=== PATIENT | female | born 1970 | race Caucasian/White ===

== ENCOUNTER 2019-09-13 06:29 | Emergency (ER) | payer OTHER ==
[~2019-09-13] VITALS: Ht 149.9 cm; Wt 59.0 kg
[2019-09-13] MEDS ORDERED: BANOPHEN25 M1 PO (06:36)
[2019-09-13] MEDS ORDERED: ROPINIROLE HCL1 MG PO (06:37)
[2019-09-13] MEDS ORDERED: TOPAMAX50 MG PO (06:37)
[2019-09-13] MEDS ORDERED: MIDODRINE HCL5 MG PO (06:37)
[2019-09-13] MEDS ORDERED: IMITREX100 MG PO (06:43)
--- NOTE | 2019-09-13 07:53 | EKG ---
[facility] [address] [facility] [place], [place] [address] Signed Normal sinus rhythm Normal ECG No previous ECGs available Confirmed by BRANDON ALEXANDER MD ([id number]) on 09/13/2019 7:53:12 AM Electronically Signed By: BRANDON ALEXANDER MD 09/13/19 0753 PATIENT NAME: ALEXUS DAVID Patel Electrocardiogram DATE OF : 70 PHYSICIAN: BRANDON ALEXANDER MD REPORT #: [id number] REPORT IS CONFIDENTIAL AND NOT TO BE RELEASED WITHOUT AUTHORIZATION
== END 2019-09-13 07:35 | disposition home or self-care (01) ==
LOC: ED 06:29
DX: R07.2 Precordial pain (principal); F17.200 Nicotine dependence, unspecified, uncomplicated; J45.909 Unspecified asthma, uncomplicated; Z79.899 Other long term (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
CPT/HCPCS: 71045; 80053; 83735; 84484; 85025; 93005; 93010; 96374; 99285-25; J1885

== ENCOUNTER 2019-10-31 10:58 | Emergency (ER) | payer OTHER ==
[~2019-10-31] VITALS: Ht 149.9 cm; Wt 59.0 kg
--- OUTSIDE RECORDS SUMMARY | ~2019-10-31 | XMS | Encounter Summary ---
Demographics + + + | Address | [address] | | | [place] [address] | + + + | Home Phone | | + + + | Preferred Language | Unknown | + + + | Marital Status | Single | + + + | Mu-Ism Affiliation | 1013 | + + + | Race | Unknown | + + + | Ethnic Group | Unknown | + + + Author + + + | Author | [facility] | | | and [place] | + + + | Organization | [facility] | | | and [...] Team Providers + +------+ + | Care Cna Per Diem Name | Role | Phone | + +------+ + PCP | Unavailable | + +------+ + Encounter Details +--------+ + + + + | Date | Type | Department | Care Team | Description | +--------+ + + + + | 12/01/ | [facility] | [facility] | Elías Mast | | | 2001 | Encounter | MED CTR LABORATORY | MD Jose [address] | | | | | [address] | [place] | | | | | [place] | [place] [address] | | | | | [address] | [phone] | | | | | [phone] | | | +--------+ + + + [...] on file | | + + + + + + + | Job Start Date | Occupation | Industry | + + + + | Not on file | Not on file | Not on file | + + + + + + + + | Travel History | Travel Start | Travel End | + + + + + + | No recent travel history available. | + + documented as of this encounter Plan of Treatment Not on filedocumented as of this encounter Visit Diagnoses Not on filedocumented in this encounter"
--- OUTSIDE RECORDS SUMMARY | ~2019-10-31 | XMS | Encounter Summary ---
Demographics + + + | Address | [address] | | | [place] [address] | + + + | Home Phone | | + + + | Preferred Language | Unknown | + + + | Marital Status | Single | + + + | Jain Affiliation | 1013 | + + + | Race | Unknown | + + + | Ethnic Group | Unknown | + + + Author + + + | Author | [facility] | | | and [place] | + + + | Organization | [facility] | | | [...] Team Providers + +------+ + | Care Plastic Shaper Name | Role | Phone | + +------+ + PCP | Unavailable | + +------+ + Encounter Details +--------+ + + + + | Date | Type | Department | Care Team | Description | +--------+ + + + + | 12/01/ | [facility] | [facility] | Elías Mast | | | 2001 | Encounter | MED CTR LABORATORY | MD Jose [address] | | | | | [address] [place] | [place] | | | | | [place] | [place] [address] | | | | | [address] | [phone] | | | | | [phone] | | | +--------+ + + + [...]
--- OUTSIDE RECORDS SUMMARY | ~2019-10-31 | XMS | Clinical Summary ---
Demographics + + + | Address | [address] | | | [place] [address] | + + + | Home Phone | | + + + | Preferred Language | Unknown | + + + | Marital Status | Single | + + + | Samaritan Affiliation | 1013 | + + + | Race | Unknown | + + + | Ethnic Group | Unknown | + + + Author + + + | Author | [facility] | | | and [place] | + + + | Organization | [facility] | | | [...] Team Providers + +------+ + | Care Pet Care Worker Name | Role | Phone | + +------+ + PCP | Unavailable | + +------+ + Allergies Not on File Medications Not on file Active Problems Not on file Social History + +-------+ +--------+------+ | Tobacco [...] recent travel history available. | + + Last Filed Vital Signs Not on file Plan of Treatment + + + + + | Health Maintenance | Due Date | Last Done | Comments | + + + + + | Vaccine: | | | | | Dtap/Tdap/Td (1 - | 1 | | | | Tdap) | | | | + + + + + | Cervical Cancer | | | | | Screening (Pap) | 0 | | | + + + + + | Breast Cancer | | | | | Screening | 5 | | | + + + + + | Vaccine: Influenza | | | | | (Season Ended) | 0 | | | + + + + + Results Not on filefrom Last 3 Months"
--- OUTSIDE RECORDS SUMMARY | ~2019-10-31 | XMS | Encounter Summary ---
Demographics + + + | Address | [address] | | | [place] [address] | + + + | Home Phone | | + + + | Preferred Language | Unknown | + + + | Marital Status | Single | + + + | Caodaism Affiliation | 1013 | + + + [...] Team Providers + +------+ + | Care Conservation Enforcement Officer Name | Role | Phone | + +------+ + PCP | Unavailable | + +------+ + Encounter Details +--------+ + + + + | Date | Type | Department | Care Team | Description | +--------+ + + + + | 11/26/ | Hospital | [facility] | Naeemage, | Unspecified chest | | 2010 | Encounter | CONVERSION DEP [address] | Kareem Ervin, | pain | | | | [place] | MD Janelle Moeller | | | | | [place] | [address], | | | | | [address] | [place] [address] | | | | | [phone] | [phone] | | | | | | | | +--------+ + + + [...] Not on filedocumented as of this encounter Procedures + +--------+ + + + | Procedure Name | Priori | Date/Time | Associated Diagnosis | Comments | | | ty | | | | + +--------+ + + + | CV CARDIAC PROCEDURE | Routin | 11/26/2010 | | Results for this | | | e | 12:55 PM | | procedure are in the | | | | PDT | | results section. | + +--------+ + + + documented in this encounter Results CV CARDIAC PROCEDURE (11/26/2010 12:55 PM PDT) + + | Specimen | + + | | + + + + + | Narrative | Performed At | + + + | PROCEDURE Left heart catheterization and coronary angiography. | | | RESULTS Aortic pressure is 130/37, with a mean of 45. Left | | | ventricular pressure is 132/2, with an EDP of 23. ARTERIOGRAPHY | | | 1. The left main coronary artery is normal. 2. The left anterior | | | descending is normal. 3. The left circumflex is normal, huge, and | | | dominant. 4. The right coronary artery is a diminutive, but long | | | artery that is angiographically unremarkable. LEFT | | | VENTRICULOGRAM Shows normal left ventricular systolic function | | | without regional wall motion abnormalities. Aortic and mitral valves | | | are structurally unremarkable. ESTIMATED BLOOD LOSS Less than 50 | | | mL. IMPRESSION Normal cardiac catheterization. DD: | | | 11/26/2010 12:44 P P [facility]/[id number]/ | | | Read by KAREEM RIVERO MD 11/26/2010 12:44 P | | | | | + + + + + | Procedure Note | + + | Arturo, Rad Conversion - 01/15/2019 5:55 PM PDT PROCEDURE | | Left heart catheterization and coronary angiography. | | | | RESULTS | | Aortic pressure is 130/37, with a mean of 45. | | Left ventricular pressure is 132/2, with an EDP of 23. | | | | ARTERIOGRAPHY | | 1. The left main coronary artery is normal. | | 2. The left anterior descending is normal. | | 3. The left circumflex is normal, huge, and dominant. | | 4. The right coronary artery is a diminutive, but long artery that is | | angiographically unremarkable. | | | | LEFT VENTRICULOGRAM | | Shows normal left ventricular systolic function without regional wall | | motion abnormalities. Aortic and mitral valves are structurally | | unremarkable. | | | | ESTIMATED BLOOD LOSS | | Less than 50 mL. | | | | IMPRESSION | | Normal cardiac catheterization. | | | | | | | | P | | P | | R/[id number]/ | | | | Read by | | KAREEM RIVERO MD 11/26/2010 12:44 P | | | | | + + documented in this encounter Visit Diagnoses + + | Diagnosis | + + | Chest pain, unspecified | + + documented in this encounter"
--- OUTSIDE RECORDS SUMMARY | ~2019-10-31 | XMS | Encounter Summary ---
Demographics + + + | Address | [address] | | | [place] [address] | + + + | Home Phone | | + + + | Preferred Language | Unknown | + + + | Marital Status | Single | + + + | Yarsani Affiliation | 1013 | + + + | Race | Unknown | + + + | Ethnic Group | Unknown | + + + Author + + + | Author | [facility] | | | and [place] | + + + | Organization | [facility] | | [...] Team Providers + +------+ + | Care Disposal Worker Name | Role | Phone | + +------+ + PCP | Unavailable | + +------+ + Encounter Details +--------+ + + + + | Date | Type | Department | Care Team | Description | +--------+ + + + + | 11/26/ | Hospital | [facility] | Naeemage, | Unspecified chest | | 2010 | Encounter | CONVERSION DEP [address] | Kareem Ervin, | pain | | | | [place] | MD Janelle Moeller | | | | | [place] | [address], | | | | | [address] | [place] [address] | | | | | [phone] | [phone] | | | | | | | [...] | | | 11/26/2010 12:44 P P [facility]/[id number]/ | | | Read by KAREEM RIVERO [...] | P | | P | | [id number]/ | | | | Read by | | KAREEM RIVERO MD 11/26/2010 12:44 P | | | | | + + documented in this encounter Visit Diagnoses + + | Diagnosis | + + | Chest pain, unspecified | + + documented in this encounter"
--- OUTSIDE RECORDS SUMMARY | ~2019-10-31 | XMS | Clinical Summary ---
Demographics + + + | Address | [address] | | | [place] [address] | + + + | Home Phone | | + + + | Preferred Language | Unknown | + + + | Marital Status | Single | + + + | Lutheran Affiliation | 1013 | + + + | Race | Unknown | + + + | Ethnic Group | Unknown | + + + Author + + + | Author | [facility] | | | and [place] | + + + | Organization | [facility] | | | and [...] Team Providers + +------+ + | Care Compliance Review Officer Name | Role | Phone | [...]
--- OUTSIDE RECORDS SUMMARY | ~2019-10-31 | XMS | Encounter Summary ---
Demographics + + + | Address | [address] | | | [place] [address] | + + + | Home Phone | | + + + | Preferred Language | Unknown | + + + | Marital Status | Single | + + + | Anglican Affiliation | 1013 | + + + | Race | Unknown | + + + | Ethnic Group | Unknown | + + + Author + + + | Author | [facility] | | | and [place] | + + + | Organization | [facility] | | | [...] Team Providers + +------+ + | Care Car Coupler Name | Role | Phone | + +------+ + PCP | Unavailable | + +------+ + Encounter Details +--------+ + + + + | Date | Type | Department | Care Team | Description | +--------+ + + + + | 11/10/ | [facility] | [facility] | Elías Mast | | | 2001 | Encounter | MED CTR SLEEP | MD Jose [address] | | | | | CENTER [address] | [place] | | | | | [place] | [place] [address] | | | | | [address] | [phone] | | | | | [phone] | | | +--------+ + + + [...]
--- OUTSIDE RECORDS SUMMARY | ~2019-10-31 | XMS | Encounter Summary ---
Demographics + + + | Address | [address] | | | [place] [address] | + + + | Home Phone | | + + + | Preferred Language | Unknown | + + + | Marital Status | Single | + + + | Rastafari Affiliation | 1013 | + + + | Race | Unknown | + + + | Ethnic Group | Unknown | + + + Author + + + | Author | [facility] | | | and [place] | + + + | Organization | [facility] | | [...] Team Providers + +------+ + | Care Script Girl Name | Role | Phone | + [...] | | CENTER [address] | [facility] [place], | | | | | [address] [place], [place] | [place] [address] | | | | | [address] | [phone] | | | | | [phone] | | | +--------+ + + + [...]
--- OUTSIDE RECORDS SUMMARY | ~2019-10-31 | XMS | Encounter Summary ---
Demographics + + + | Address | [address] | | | [place] [address] | + + + | Home Phone | | + + + | Preferred Language | Unknown | + + + | Marital Status | Single | + + + | Tenriism Affiliation | 1013 | + + + | Race | Unknown | + + + | Ethnic Group | Unknown | + + + Author + + + | Author | [facility] | | | and [place] | + + + | Organization | [facility] | | [...] Providers + +------+ + | Care Medical Records Technician Name | Role | Phone | + +------+ + PCP | Unavailable | + +------+ + Encounter Details +--------+ + + + + | Date | Type | Department | Care Team | Description | +--------+ + + + + | 02/08/ | [facility] | [facility] | Elías Mast | | | 2001 | Encounter | MED CTR LABORATORY | MD Jose [address] | | | | | [address] | [place] | | | | | [place] | [place] [address] | | | | | [address] | [phone] | | | | | [phone] | | | +--------+ + + + [...]
--- OUTSIDE RECORDS SUMMARY | ~2019-10-31 | XMS | Encounter Summary ---
Demographics + + + | Address | [address] | | | [place] [address] | + + + | Home Phone | | + + + | Preferred Language | Unknown | + + + | Marital Status | Single | + + + | Druze Affiliation | 1013 | + + + | Race | Unknown | + + + | Ethnic Group | Unknown | + + + Author + + + | Author | [facility] | | | and [place] | + + + | Organization | [facility] | | | [...] Team Providers + +------+ + | Care Cloth Brushing And Sueding Supervisor Name | Role | Phone | [...] | | CENTER [address] | [facility] [place], | | | | | [address] [place], [place] | [place] [address] | | | | | [address] | [phone] | | | | | [phone] | | | +--------+ + + + [...]
--- OUTSIDE RECORDS SUMMARY | ~2019-10-31 | XMS | Encounter Summary ---
Demographics + + + | Address | [address] | | | [place] [address] | + + + | Home Phone | | + + + | Preferred Language | Unknown | + + + | Marital Status | Single | + + + | Anabaptist Affiliation | 1013 | + + + [...] Providers + +------+ + | Care Medical Program Specialist Name | Role | Phone | + +------+ + PCP | Unavailable | + +------+ + Encounter Details +--------+ + + + + | Date | Type | Department | Care Team | Description | +--------+ + + + + | 02/08/ | [facility] | [facility] | Elías Mast | | | 2001 | Encounter | MED CTR LABORATORY | MD Jose [address] | | | | | [address] | [place] | | | | | [place] | [place] [address] | | | | | [address] | [phone] | | | | | [phone] | | | +--------+ + + + [...]
--- OUTSIDE RECORDS SUMMARY | ~2019-10-31 | XMS | Encounter Summary ---
Demographics + + + | Address | [address] | | | [place] [address] | + + + | Home Phone | | + + + | Preferred Language | Unknown | + + + | Marital Status | Single | + + + | Latter-Day Affiliation | 1013 | + + + | Race | Unknown | + + + | Ethnic Group | Unknown | + + + Author + + + | Author | [facility] | | | and [place] | + + + | Organization | [facility] | | | [...] Team Providers + +------+ + | Care Public Health Engineer Name | Role | Phone | + +------+ + PCP | Unavailable | + +------+ + Encounter Details +--------+ + + + + | Date | Type | Department | Care Team | Description | +--------+ + + + + | 11/10/ | [facility] | [facility] | Elías Mast | | | 2001 | Encounter | MED CTR SLEEP | MD Jose [address] | | | | | CENTER [address] | [place] | | | | | [place] | [place] [address] | | | | | [address] | [phone] | | | | | [phone] | | | +--------+ + + + [...]
--- OUTSIDE RECORDS SUMMARY | ~2019-10-31 | XMS | Encounter Summary ---
Demographics + + + | Address | [address] | | | [place] [address] | + + + | Home Phone | | + + + | Preferred Language | Unknown | + + + | Marital Status | Single | + + + | Episcopalian Affiliation | 1013 | + + + | Race | Unknown | + + + | Ethnic Group | Unknown | + + + Author + + + | Author | [facility] | | | and [place] | + + + | Organization | [facility] | | [...] Providers + +------+ + | Care Senior Energy Trader Name | Role | Phone | + +------+ + PCP | Unavailable | + +------+ + Encounter Details +--------+ + + + + | Date | Type | Department | Care Team | Description | +--------+ + + + + | 10/11/ | Hospital | [facility] | Jorge [facility]ros | | | 2008 | Encounter | HOSPITAL EMERGENCY | MD Dani [address] | | | | | CENTER [address] | [address] [place] | | | | | [address] [place] | [place] [address] | | | | | [address] | [phone] | | | | | [phone] | | | +--------+ + + + [...]
--- OUTSIDE RECORDS SUMMARY | ~2019-10-31 | XMS | Encounter Summary ---
Demographics + + + | Address | [address] | | | [place] [address] | + + + | Home Phone | | + + + | Preferred Language | Unknown | + + + | Marital Status | Single | + + + | Religion Affiliation | 1013 | + + + | Race | Unknown | + + + | Ethnic Group | Unknown | + + + Author + + + | Author | [facility] | | | and [place] | + + + | Organization | [facility] | | | [...] Team Providers + +------+ + | Care Operations Support Representative Name | Role | Phone | + [...] | [address] [place] [place] | [place] [address] | | | | | [address] | [phone] | | | | | [phone] | | | +--------+ + + + [...]
[~2019-10-31 10:58] MED LIST: BANOPHEN25 M1 PO; IMITREX100 MG PO; MIDODRINE HCL5 MG PO; ROPINIROLE HCL1 MG PO; TOPAMAX50 MG PO
[2019-10-31] MEDS ORDERED: PRAMIPEXOLE DIHY1 MG PO (11:29)
== END 2019-10-31 13:16 | disposition home or self-care (01) ==
LOC: ED 10:58
DX: S70.02XA Contusion of left hip, initial encounter (principal); J45.909 Unspecified asthma, uncomplicated; F17.200 Nicotine dependence, unspecified, uncomplicated; Z79.899 Other long term (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; W18.30XA Fall on same level, unspecified, initial encounter
CPT/HCPCS: 73502; 96372; 99283-25; J1885

== ENCOUNTER 2019-11-07 14:48 | Emergency (ER) | payer OTHER ==
[~2019-11-07] VITALS: Ht 149.9 cm; Wt 59.0 kg
[~2019-11-07 14:48] MED LIST changes: +PRAMIPEXOLE DIHY1 MG PO
--- OUTSIDE RECORDS SUMMARY | 2019-11-07 14:54 | XMS ---
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 Thee has no Care Guidelines for this patient. [place] [facility] (12 MO.) [facility] NOTE: Visits indicate total known visits. ED/C VISIT TRACKING (12 MO.) 11/07/2019 14:48 [facility] TYPE: Emergency COMPLAINT: - FALL 10/31/2019 10:59 [place] TYPE: Emergency COMPLAINT: - FALL, NECK PAIN,LEFT HIP PAIN DIAGNOSES: - Other retirement (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 - Contusion of left hip, initial encounter - Nicotine dependence, unspecified, uncomplicated - Fall on same level, unspecified, initial encounter - Pain in left hip - Unspecified asthma, uncomplicated 09/13/2019 06:30 [place] TYPE: Emergency COMPLAINT: - CHEST PAIN DIAGNOSES: - Precordial pain - Unspecified asthma, uncomplicated - Other retirement (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 - Nicotine dependence, unspecified, uncomplicated - Precordial pain INPATIENT VISIT TRACKING (12 MO.) No inpatient visits to display in this time frame [email or web address]
[2019-11-07] MEDS ORDERED: MIDODRINE HCL5 MG PO (18:13)
[2019-11-07] MEDS ORDERED: MIRAPEX1 MG PO (18:13)
== END 2019-11-07 18:25 | disposition home or self-care (01) ==
LOC: ED 14:48
DX: S13.9XXA Sprain of joints and ligaments of unspecified parts of neck, initial encounter (principal); S93.401A Sprain of unspecified ligament of right ankle, initial encounter; S43.401A Unspecified sprain of right shoulder joint, initial encounter; I95.9 Hypotension, unspecified; J45.909 Unspecified asthma, uncomplicated; F17.200 Nicotine dependence, unspecified, uncomplicated; X58.XXXA Exposure to other specified factors, initial encounter
CPT/HCPCS: 72050; 73030; 73560; 73610; 99284-25; A9270

== ENCOUNTER 2019-11-20 10:56 | Emergency (ER) | payer OTHER ==
[~2019-11-20] VITALS: Ht 149.9 cm; Wt 59.0 kg
--- OUTSIDE RECORDS SUMMARY | ~2019-11-20 | XMS | Encounter Summary ---
Demographics + + + | Address | [address] | | | [place] [address] | + + + | Home Phone | | + + + | Preferred Language | Unknown | + + + | Marital Status | | + + + | Methodist Affiliation | 1013 | + + + | Race | Unknown | + + + | Ethnic Group | Unknown | + + + Author + + + | Author | [facility] | | | and [place] | + + + | Organization | [facility] | | | and [...] Team Providers + +------+ + | Care Gas Line Installer Name | Role | Phone | + +------+ + PCP | Unavailable | + +------+ + Encounter Details +--------+ + + + + | Date | Type | Department | Care Team | Description | +--------+ + + + + | 02/08/ | [facility] | [facility] | Elías Mast | | | 2001 | Encounter | MED CTR LABORATORY | MD Jose [address] | | | | | [address] | [address] [place] | | | | | [place] | [place] [address] | | | | | [address] | [phone] | | | | | [phone] | | | +--------+ + + + [...] [place] | | | | | | [place] [address] | | | | | | [phone] | | | | | | | | +--------+---------+ + + + documented as of this encounter Visit Diagnoses Not on filedocumented in this encounter"
--- OUTSIDE RECORDS SUMMARY | ~2019-11-20 | XMS | Encounter Summary ---
Demographics + + + | Address | [address] | | | [place] [address] | + + + | Home Phone | | + + + | Preferred Language | Unknown | + + + | Marital Status | | + + + | Latter-Day Affiliation | 1013 | + + + | Race | Unknown | + + + | Ethnic Group | Unknown | + + + Author + + + | Author | [facility] | | | and [place] | + + + | Organization | [facility] | | | [...] Team Providers + +------+ + | Care Senior Underwriter Name | Role | Phone | + +------+ + PCP | Unavailable | + +------+ + Encounter Details +--------+ + + + + | Date | Type | Department | Care Team | Description | +--------+ + + + + | 11/10/ | [facility] | [facility] | Elías Mast | | | 2001 | Encounter | MED CTR SLEEP | MD Jose [address] | | | | | CENTER [address] | [address] [place] | | | | | [place] | [place] [address] | | | | | [address] | [phone] | | | | | [phone] | | | +--------+ + + + [...] [address] | | | | | | [place] [address] | | | | | | [phone] | | | | | | | | +--------+---------+ + + + documented as of this encounter Visit Diagnoses Not on filedocumented in this encounter"
--- OUTSIDE RECORDS SUMMARY | ~2019-11-20 | XMS | Clinical Summary ---
Demographics + + + | Address | [address] | | | [place] [address] | + + + | Home Phone | | + + + | Preferred Language | Unknown | + + + | Marital Status | | + + + | Latter-Day Affiliation | 1013 | + + + | Race | Unknown | + + + | Ethnic Group | Unknown | + + + Author + + + | Author | [facility] | | | and [place] | + + + | Organization | [facility] | | | [...] Team Providers + +------+ + | Care Health And Wellness Coach Name | Role | Phone | + +------+ + | Kalyani Lawrence PA-C | PCP | | + +------+ + Allergies Not on [...] + + + Last Filed Vital Signs Not on file Plan of Treatment +--------+---------+ + + + | Date | Type | Specialty | Care Team | Description | +--------+---------+ + + + | 12/25/ | Office | Cardiology | Naveen, | | | 2019 | Visit | | MD [address] | | | | | | [address] | | | | | | [place] [address] | | | | | | [phone] | | | | | | | | +--------+---------+ + + + + + +-------+ + | Health Maintenance | Due Date | Last | Comments | | | | Done | | + + +-------+ + | Vaccine: | | | | | Dtap/Tdap/Td (1 - | 9 | | | | Tdap) | | | | + + +-------+ + | Cervical Cancer | | | | | Screening (Pap) | 0 | | | + + +-------+ + | Breast Cancer | | | | | Screening | 5 | | | + + +-------+ + | Vaccine: Influenza | | | | | (Season Ended) | 0 | | | + + +-------+ + Results Not on filefrom Last 3 Months Insurance + +--------+ +--------+ [...] | [employer] | MODA | [id number] | | [phone] | | Medica | | MEDICAID HMO [...] Anna Sandoval | Person | Self | [birth year] | [address] | | | al/Fam | | 1970 | [phone] | [place] | | | cara | | | 5 ([place]) | [address] | + +--------+ +--------+ + + Advance Directives + + + + + | Type | Date Recorded | Patient | Explanation | | | | Grid Maker | | + + + + + | Power of | | | | | Automobile Leasing Supervisor | | | | + + + + + | Advance | | | | | Directive | | | | + + + + +"
--- OUTSIDE RECORDS SUMMARY | ~2019-11-20 | XMS | Encounter Summary ---
Demographics + + + | Address | [address] | | | [place] [address] | + + + | Home Phone | | + + + | Preferred Language | Unknown | + + + | Marital Status | | + + + | Yarsanism Affiliation | 1013 | + + + | Race | Unknown | + + + | Ethnic Group | Unknown | + + + Author + + + | Author | [facility] | | | and [place] | + + + | Organization | [facility] | | | [...] Team Providers + +------+ + | Care Accounts Payable Supervisor Name | Role | Phone | + +------+ + PCP | Unavailable | + +------+ + Encounter Details +--------+ + + + + | Date | Type | Department | Care Team | Description | +--------+ + + + + | 11/26/ | Hospital | [facility] | Ravage, | Unspecified chest | | 2010 | Encounter | CONVERSION [address] | Kareem Ervin, | pain | | | | [place] | MD Janelle Moeller | | | | | [place] | [address] [place], | | | | | [address] | [place] [address] | | | | | [phone] | [phone] | | | | | | | [...] [place]JAS | | | | | | [facility] [address] | | | | | | [phone] | | | | | | | [...] | | | 11/26/2010 12:44 P P [id number]/ | | | Read by KAREEM RIVERO [...] | P | | P | | [id number]/ | | | | Read by | | KAREEM RIVERO MD 11/26/2010 12:44 P | | | | | + + documented in this encounter Visit Diagnoses + + | Diagnosis | + + | Chest pain, unspecified | + + documented in this encounter"
--- OUTSIDE RECORDS SUMMARY | ~2019-11-20 | XMS | Encounter Summary ---
Demographics + + + | Address | [address] | | | [place] [address] | + + + | Home Phone | | + + + | Preferred Language | Unknown | + + + | Marital Status | | + + + | Mu-Ism Affiliation [...] Team Providers + +------+ + | Care Radiologic Technology Instructor Name | Role | Phone | + +------+ + PCP | Unavailable | + +------+ + Encounter Details +--------+ + + + + | Date | Type | Department | Care Team | Description | +--------+ + + + + | 12/01/ | [facility] | [place] | Elías Mast | | | 2001 | Encounter | MED CTR LABORATORY | MD Jose [address] | | | | | [address] | [address] | | | | | [place] | [place] [address] | | | | | [address] | [phone] | | | | | [phone] | | | +--------+ + + + [...] [place] | | | | | | [place] [address] | | | | | | [phone] | | | | | | | | +--------+---------+ + + + documented as of this encounter Visit Diagnoses Not on filedocumented in this encounter"
--- OUTSIDE RECORDS SUMMARY | ~2019-11-20 | XMS | Encounter Summary ---
Demographics + + + | Address | [address] | | | [place] [address] | + + + | Home Phone | | + + + | Preferred Language | Unknown | + + + | Marital Status | | + + + | Anglican Affiliation | 1013 | + + + | Race | Unknown | + + + | Ethnic Group | Unknown | + + + Author + + + | Author | [facility] | | | and [place] | + + + | Organization | [facility] | | | [...] Team Providers + +------+ + | Care Pumping Station Engineer Name | Role | Phone | [...] | [address] [place] | [place] [address] | | | | | [address] | [phone] | | | | | [phone] | | | +--------+ + + + [...] | | | | | [place] [address] | | | | | | [phone] | | | | | | | | +--------+---------+ + + + documented as of this encounter Visit Diagnoses Not on filedocumented in this encounter"
--- OUTSIDE RECORDS SUMMARY | ~2019-11-20 | XMS | Encounter Summary ---
Demographics + + + | Address | [address] | | | [place] [address] | + + + | Home Phone | | + + + | Preferred Language | Unknown | + + + | Marital Status | | + + + | Sabianist Affiliation | 1013 | + + + [...] Team Providers + +------+ + | Care Adult Literacy Instructor Name | Role | Phone | [...] | | [address] [place], [place] | [place] [address] | | | | | [address] | [phone] | | | | | [phone] | | | +--------+ + + + [...] [place] | | | | | | [place] [address] | | | | | | [phone] | | | | | | | | +--------+---------+ + + + documented as of this encounter Visit Diagnoses Not on filedocumented in this encounter"
[~2019-11-20 10:56] MED LIST changes: +MIRAPEX1 MG PO
--- OUTSIDE RECORDS SUMMARY | 2019-11-20 10:58 | XMS ---
PreManage Notification: ALEXUS DAVID Security Weaver [place] Events No recent Security Events currently on file CRITERIA MET - [facility] - 2 Visits in 30 Days CARE PROVIDERS There are no care providers on record at this time. Thee has no Care Guidelines for this patient. Hannah VISIT COUNT (12 MO.) [address] [facility] [place] TOTAL 4 NOTE: Visits indicate total known visits. ED/C VISIT TRACKING (12 MO.) 11/20/2019 10:56 [place] TYPE: Emergency COMPLAINT: - LEFT HAND PAIN 11/07/2019 14:48 [place] TYPE: Emergency COMPLAINT: - FALL DIAGNOSES: - Hypotension, unspecified - Sprain of joints and ligaments of unspecified parts of neck, - Nicotine dependence, unspecified, uncomplicated - Unspecified asthma, uncomplicated - Cervicalgia - Exposure to other specified factors, initial encounter - Sprain of unspecified ligament of right ankle, initial encoun - Unspecified sprain of right shoulder joint, initial encounter 10/31/2019 10:59 [place] TYPE: Emergency COMPLAINT: - FALL, NECK PAIN,LEFT HIP PAIN DIAGNOSES: - Other care home (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 - Contusion of left hip, initial encounter - Nicotine dependence, unspecified, uncomplicated - Fall on same level, unspecified, initial encounter - Pain in left hip - Unspecified asthma, uncomplicated 09/13/2019 06:30 [place] TYPE: Emergency COMPLAINT: - CHEST PAIN DIAGNOSES: - Precordial pain - Unspecified asthma, uncomplicated - Other termination clerk (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 - Nicotine dependence, unspecified, uncomplicated - Precordial pain INPATIENT VISIT TRACKING (12 MO.) No inpatient visits to display in this time frame [email or web address]
[2019-11-20] MEDS ORDERED: MIDODRINE HCL5 MG PO (13:29)
--- NOTE | 2019-11-23 16:12 | EKG ---
[facility] [address] [facility] [place], [place] [address] Signed Normal sinus rhythm Normal ECG When compared with ECG of 13-SEP-2019 06:34, No significant change was found Confirmed by MARY FAITH DO ([id number]) on 11/23/2019 4:12:31 PM Electronically Signed By: MARY FAITH DO 11/23/19 1612 PATIENT NAME: ALEXUS DAVID Patel Electrocardiogram DATE OF : 70 PHYSICIAN: MARY FAITH DO REPORT #: [id number] REPORT IS CONFIDENTIAL AND NOT TO BE RELEASED WITHOUT AUTHORIZATION
== END 2019-11-20 14:02 | disposition home or self-care (01) ==
LOC: ED 10:56
DX: S60.222A Contusion of left hand, initial encounter (principal); R55 Syncope and collapse; R00.1 Bradycardia, unspecified; F17.200 Nicotine dependence, unspecified, uncomplicated; Z79.899 Other long term (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; W19.XXXA Unspecified fall, initial encounter
CPT/HCPCS: 36415; 73130; 80053; 83735; 84484; 85025; 93005; 93010; 99284-25

== ENCOUNTER 2019-11-22 22:48 | Emergency (ER) | payer OTHER ==
[~2019-11-22] VITALS: Ht 149.9 cm; Wt 59.0 kg
--- OUTSIDE RECORDS SUMMARY | ~2019-11-22 | XMS | Encounter Summary ---
Demographics + + + | Address | [address] | | | [place] [address] | + + + | Home Phone | | + + + | Preferred Language | Unknown | + + + | Marital Status | | + + + | Congregational Affiliation | 1013 | + + + | Race | Unknown | + + + | Ethnic Group | Unknown | + + + Author + + + | Author | [facility] | | | and [place] | + + + | Organization | [facility] | | | [...] Team Providers + +------+ + | Care Threader Operator Name | Role | Phone | + +------+ + PCP | Unavailable | + +------+ + Encounter Details +--------+ + + + + | Date | Type | Department | Care Team | Description | +--------+ + + + + | 08/02/ | Hospital | [facility] | Eloina Bustamante | | | 2016 | Encounter | HOSPITAL EMERGENCY | [address] | | | | | C[address] | [place], | | | | | [address] [place], [place] | [place] [address] | | | | | [address] | [phone] | | | | | [phone] | | | +--------+ + + + [...] Description | +--------+---------+ + + + | 12/25/ | Office | Cardiology | Naveen, | | | 2020 | Visit | | MD [address] | | | | | | [address] | | | | | | [place] [address] | | | | | | [phone] | | | | | | | | +--------+---------+ + + + documented as of this encounter Visit Diagnoses Not on filedocumented in this encounter"
--- OUTSIDE RECORDS SUMMARY | ~2019-11-22 | XMS | Encounter Summary ---
Demographics + + + | Address | [address] | | | [place] [address] | + + + | Home Phone | | + + + | Preferred Language | Unknown | + + + | Marital Status | | + + + | Advent Affiliation | 1013 | + + + | Race | Unknown | + + + | Ethnic Group | Unknown | + + + Author + + + | Author | [facility] | | | and [place] | + + + | Organization | [facility] | | | [...] Team Providers + +------+ + | Care Oracle Dba Name | Role | Phone | + +------+ + PCP | Unavailable | + +------+ + Encounter Details +--------+ + + + + | Date | Type | Department | Care Team | Description | +--------+ + + + + | 11/10/ | [facility] | [facility] | Elías Mast | | | 2001 | Encounter | MED CTR SLEEP | MD Jose [address] | | | | | CENTER [address] | [address] [place] | | | | | [place] | [place] [address] | | | | | [address] | [phone] | | | | | [phone] | | | +--------+ + + + [...] ROJAS | | | | | | [place] [address] | | | | | | [phone] | | | | | | | | +--------+---------+ + + + documented as of this encounter Visit Diagnoses Not on filedocumented in this encounter"
--- OUTSIDE RECORDS SUMMARY | ~2019-11-22 | XMS | Encounter Summary ---
Demographics + + + | Address | [address] | | | [place] [address] | + + + | Home Phone | | + + + | Preferred Language | Unknown | + + + | Marital Status | | + + + | Nondenominational Affiliation | 1013 | + + + [...] Team Providers + +------+ + | Care Bottom Finisher Name | Role | Phone | + [...] | [address] [place] [place] | [place] [address] | | | | | [address] | [phone] | | | | | [phone] | | | +--------+ + + + [...] | | | | | [place] [address] | | | | | | [phone] | | | | | | | | +--------+---------+ + + + documented as of this encounter Visit Diagnoses Not on filedocumented in this encounter"
--- OUTSIDE RECORDS SUMMARY | ~2019-11-22 | XMS | Clinical Summary ---
Demographics + + + | Address | [address] | | | [place] [address] | + + + | Home Phone [...] Team Providers + +------+ + | Care Supervisor Paper Coating Name | Role | Phone | + [...] [place] | | | | | | [place] [address] | | | | | | [phone] | | | | | | | [...] | [employer] | MODA | [id number] | | [phone] | | Medica | [...] | | al/Fam | | 1970 | [phone] | [place] | | | cara | | | 1 ([place]) | [address] | + +--------+ +--------+ + + Advance Directives + + + + + | Type | Date Recorded | Patient | Explanation | | | | Maintenance Plumber | | + + + + + | Power of | | | | | Auto Accessories Installer | | | | + + + + + | Advance | | | | | Directive | | | | + + + + +"
--- OUTSIDE RECORDS SUMMARY | ~2019-11-22 | XMS | Encounter Summary ---
Demographics + + + | Address | [address] | | | [place] [address] | + + + | Home Phone | | + + + | Preferred Language | Unknown | + + + | Marital Status | | + + + | Jainism Affiliation | 1013 | + + + [...] Team Providers + +------+ + | Care Top Frame Fitter Name | Role | Phone | + +------+ + PCP | Unavailable | + +------+ + Encounter Details +--------+ + + + + | Date | Type | Department | Care Team | Description | +--------+ + + + + | 12/01/ | [facility] | [facility] | Elías Mast | | | 2001 | Encounter | MED CTR LABORATORY | MD Jose [address] | | | | | [address] | [address] | | | | | [place] | [place] [address] | | | | | [address] | [phone] | | | | | [phone] | | | +--------+ + + + [...] ROJAS | | | | | | [place] [address] | | | | | | [phone] | | | | | | | | +--------+---------+ + + + documented as of this encounter Visit Diagnoses Not on filedocumented in this encounter"
--- OUTSIDE RECORDS SUMMARY | ~2019-11-22 | XMS | Encounter Summary ---
Demographics + + + | Address | [address] | | | [place] [address] | + + + | Home Phone | | + + + | Preferred Language | Unknown | + + + | Marital Status | | + + + | Evangelical Affiliation | 1013 | + + + [...] Team Providers + +------+ + | Care Storm Sash Maker Name | Role | Phone | + +------+ + PCP | Unavailable | + +------+ + Encounter Details +--------+ + + + + | Date | Type | Department | Care Team | Description | +--------+ + + + + | 02/08/ | [facility] | [facility] | Elías Mast | | | 2001 | Encounter | MED CTR LABORATORY | MD Jose [address] | | | | | [address] | [address] [place] | | | | | [place] | [place] [address] | | | | | [address] | [phone] | | | | | [phone] | | | +--------+ + + + [...] ROJAS | | | | | | [place] [address] | | | | | | [phone] | | | | | | | | +--------+---------+ + + + documented as of this encounter Visit Diagnoses Not on filedocumented in this encounter"
--- OUTSIDE RECORDS SUMMARY | ~2019-11-22 | XMS | Encounter Summary ---
Demographics + + + | Address | [address] | | | [place] [address] | + + + | Home Phone | | + + + | Preferred Language | Unknown | + + + | Marital Status | | + + + | Jewish Affiliation | 1013 | + + + [...] Team Providers + +------+ + | Care High Lift Operator Name | Role | Phone | + +------+ + PCP | Unavailable | + +------+ + Encounter Details +--------+ + + + + | Date | Type | Department | Care Team | Description | +--------+ + + + + | 11/26/ | Hospital | [facility] | Ravage, | Unspecified chest | | 2010 | Encounter | CONVERSION [address] | Kareem Ervin, | pain | | | | [place] | MD Janelle Moeller | | | | | [place] | [address] [place], | | | | | [address] | [place] [address] | | | | | [phone] | [phone] | | | | | | | [...] [place] | | | | | | [facility] [address] | | | | | | [phone] | | | | | | | [...] | | | 11/26/2010 12:44 P P [id number]/ | | | Read by KAREEM RIVERO [...] | P | | P | | [id number]/ | | | | Read by | | KAREEM RIVERO MD 11/26/2010 12:44 P | | | | | + + documented in this encounter Visit Diagnoses + + | Diagnosis | + + | Chest pain, unspecified | + + documented in this encounter"
--- OUTSIDE RECORDS SUMMARY | 2019-11-22 22:50 | XMS ---
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 Care History Medical/Surgical 11/21/2019 [facility] - PATIENT HAS AN APT FOR ED FOLLOW WITH PCP MAURO MANSFIELD - Thursday. Hannah VISIT COUNT (12 MO.) 5 [facility] TOTAL 5 NOTE: Visits indicate total known visits. ED/UCC VISIT TRACKING (12 MO.) 11/22/2019 22:49 [place] [facility] [place] TYPE: Emergency COMPLAINT: - ABD PAIN, BLOODY STOOL 11/20/2019 10:56 [place] [facility] [place] TYPE: Emergency [...] NECK PAIN,LEFT HIP PAIN DIAGNOSES: - Other longterm (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 - Contusion of left hip, initial encounter - Nicotine dependence, unspecified, uncomplicated - Fall on same level, unspecified, initial encounter - Pain in left hip - Unspecified asthma, uncomplicated 09/13/2019 06:30 [place] [facility] [place] TYPE: Emergency COMPLAINT: - CHEST PAIN DIAGNOSES: - Precordial pain - Unspecified asthma, uncomplicated - Other longterm (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 - Nicotine dependence, unspecified, uncomplicated - Precordial pain INPATIENT VISIT TRACKING (12 MO.) No inpatient visits to display in this time frame [email or web address]
[2019-11-23] MEDS ORDERED: FLAGYL500 MG PO (01:04)
[2019-11-23] MEDS ORDERED: NORCO 5-325 TA1 EACH PO (01:04)
[2019-11-23] MEDS ORDERED: PROMETHAZINE HC25 M1 PO (01:04)
[2019-11-23] MEDS ORDERED: CIPRO500 MG PO (01:04)
== END 2019-11-23 03:03 | disposition home or self-care (01) ==
LOC: ED 22:48
DX: K52.9 Noninfective gastroenteritis and colitis, unspecified (principal); J45.909 Unspecified asthma, uncomplicated; F17.200 Nicotine dependence, unspecified, uncomplicated; Z79.899 Other long term (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
CPT/HCPCS: 74177; 81001; 84703; 96361; 96365; 96367; 96375; 99284-25; J0744; J2270; J2405; J7030; Q9967

== ENCOUNTER 2019-11-30 12:25 | Emergency (ER) | payer OTHER ==
[~2019-11-30] VITALS: Ht 149.9 cm; Wt 59.0 kg
--- OUTSIDE RECORDS SUMMARY | ~2019-11-30 | XMS | Encounter Summary ---
Demographics + + + | Address | [address] | | | [place] [address] | + + + | Home Phone | | + + + | Preferred Language | Unknown | + + + | Marital Status | | + + + | Uatsdin Affiliation | 1013 | + + + [...] Team Providers + +------+ + | Care Innersole Maker Name | Role | Phone | + +------+ + PCP | Unavailable | + +------+ + Encounter Details +--------+ + + + + | Date | Type | Department | Care Team | Description | +--------+ + + + + | 11/26/ | Hospital | [facility] | Ravage, | Unspecified chest | | 2010 | Encounter | CONVERSION DEP [address] | Kareem Ervin, | pain | | | | [place] | MD Janelle Moeller | | | | | [place] | [address] [place], | | | | | [address] | [place] [address] | | | | | [phone] | [phone] | | | | | | | [...] | Cardiology | Naveen, | | | 2019 | Visit | | MD [address] | | | | | | [place] | | | | | | [facility] [address] | | | | | | [phone] | | | | | | | [...] | | | 11/26/2010 12:44 P P [id number]/ | | | Read by KAREEM RIVERO [...] | P | | P | | [id number]/ | | | | Read by | | KAREEM RIVERO MD 11/26/2010 12:44 P | | | | | + + documented in this encounter Visit Diagnoses + + | Diagnosis | + + | Chest pain, unspecified | + + documented in this encounter"
--- OUTSIDE RECORDS SUMMARY | ~2019-11-30 | XMS | Encounter Summary ---
Demographics + + + | Address | [address] | | | [place] [address] | + + + | Home Phone | | + + + | Preferred Language | Unknown | + + + | Marital Status | | + + + | Temple Affiliation | 1013 | + + + [...] Team Providers + +------+ + | Care General Warehouse Worker Name | Role | Phone | + +------+ + PCP | Unavailable | + +------+ + Encounter Details +--------+ + + + + | Date | Type | Department | Care Team | Description | +--------+ + + + + | 11/10/ | [facility] | [facility] | Elías Mast | | | 2001 | Encounter | MED CTR SLEEP | MD Jose [address] | | | | | CENTER [address] | [address] [place] | | | | | [place] | [place] [address] | | | | | [address] | [phone] | | | | | [phone] | | | +--------+ + + + [...] ROJAS | | | | | | [place] [address] | | | | | | [phone] | | | | | | | | +--------+---------+ + + + documented as of this encounter Visit Diagnoses Not on filedocumented in this encounter"
--- OUTSIDE RECORDS SUMMARY | ~2019-11-30 | XMS | Encounter Summary ---
Demographics + + + | Address | [address] | | | [place] [address] | + + + | Home Phone | | + + + | Preferred Language | Unknown | + + + | Marital Status | | + + + | Protestant Affiliation | 1013 | + + + | Race | Unknown | + + + | Ethnic Group | Unknown | + + + Author + + + | Author | [facility] | | | and [place] | + + + | Organization | [facility] | | | and [place] | + + + | Address | Unknown | + + + | Phone | Unavailable | + + + Support + + +---------+ + | Name | Relationship | Address | Phone | + + +---------+ + | Farnaz Noelgilmer | ECON | Unknown | | + + +---------+ + Care Team Providers + +------+ + | Care Master Deputy Sheriff Court Security Name | Role | Phone | + +------+ + PCP | Unavailable | + +------+ + Encounter Details +--------+ + + + + | Date | Type | Department | Care Team | Description | +--------+ + + + + | 10/11/ | Hospital | [facility] | Jorge Luis [facility] | | | 2008 | Encounter | HOSPITAL EMERGENCY | MD [address]i [address] | | | | | CENTER [address] | [address] [place] | | | | | [address] [place] | [place] [address] | | | | | [address] | [phone] | | | | | [phone] | | | +--------+ + + + [...] [place] | | | | | | [place] [address] | | | | | | [phone] | | | | | | | | +--------+---------+ + + + documented as of this encounter Visit Diagnoses Not on filedocumented in this encounter"
--- OUTSIDE RECORDS SUMMARY | ~2019-11-30 | XMS | Clinical Summary ---
Demographics + + + | Address | [address] | | | [place] [address] | + + + | Home Phone | | + + + | Preferred Language | Unknown | + + + | Marital Status | | + + + | Taoism Affiliation | 1013 | + + + | Race | Unknown | + + + | Ethnic Group | Unknown | + + + Author + + + | Author | [facility] | | | and [place] | + + + | Organization | [facility] | | | [...] Team Providers + +------+ + | Care Airbrush Painter Name | Role | Phone | + [...] [place] | | | | | | [place] [address] | | | | | | [phone] | | | | | | | [...] | [employer] | [employer] | [id number] | | [phone] | | Medica | [...] | | al/Fam | | 1970 | [phone] | [place] | | | cara | | | 1 ([place]) | [address] | + +--------+ +--------+ + + Advance Directives + + + + + | Type | Date Recorded | Patient | Explanation | | | | Tapper Bit | | + + + + + | Power of | | | | | Ceramic Products Sales Engineer | | | | + + + + + | Advance | | | | | Directive | | | | + + + + +"
--- OUTSIDE RECORDS SUMMARY | ~2019-11-30 | XMS | Encounter Summary ---
Demographics + + + | Address | [address] | | | [place] [address] | + + + | Home Phone | | + + + | Preferred Language | Unknown | + + + | Marital Status | | + + + | Cheondoism Affiliation | 1013 | + + + | Race | Unknown | + + + | Ethnic Group | Unknown | + + + Author + + + | Author | [facility] | | | and [place] | + + + | Organization | [facility] | | [...] Team Providers + +------+ + | Care Marketing Intelligence Manager Name | Role | Phone | + +------+ + PCP | Unavailable | + +------+ + Encounter Details +--------+ + + + + | Date | Type | Department | Care Team | Description | +--------+ + + + + | 12/01/ | [facility] | [facility] | Elías Mast | | | 2001 | Encounter | MED CTR LABORATORY | MD Jose [address] | | | | | [address] | [address] [place] | | | | | [place] | [place] [address] | | | | | [address] | [phone] | | | | | [phone] | | | +--------+ + + + [...] ROJAS | | | | | | [place] [address] | | | | | | [phone] | | | | | | | | +--------+---------+ + + + documented as of this encounter Visit Diagnoses Not on filedocumented in this encounter"
--- OUTSIDE RECORDS SUMMARY | ~2019-11-30 | XMS | Encounter Summary ---
Demographics + + + | Address | [address] | | | [place] [address] | + + + | Home Phone | | + + + | Preferred Language | Unknown | + + + | Marital Status | | + + + | Scientology Affiliation | 1013 | + + + | Race | Unknown | + + + | Ethnic Group | Unknown | + + + Author + + + | Author | [facility] | | | and [place] | + + + | Organization | [facility] | | | and [place] | + [...] Team Providers + +------+ + | Care Boat Loader Name | Role | Phone | [...] | | [place], [place] | [place] [address] | | | | | [address] | [phone] | | | | | [phone] | | | +--------+ + + + [...] [place] | | | | | | [place] [address] | | | | | | [phone] | | | | | | | | +--------+---------+ + + + documented as of this encounter Visit Diagnoses Not on filedocumented in this encounter"
--- OUTSIDE RECORDS SUMMARY | ~2019-11-30 | XMS | Encounter Summary ---
Demographics + + + | Address | [address] | | | [place] [address] | + + + | Home Phone | | + + + | Preferred Language | Unknown | + + + | Marital Status | | + + + | Religion Affiliation | 1013 | + + + | Race | Unknown | + + + | Ethnic Group | Unknown | + + + Author + + + | Author | [facility] | | | and [place] | + + + | Organization | [facility] | | [...] Team Providers + +------+ + | Care Bleach Boiler Filler Name | Role | Phone | + +------+ + PCP | Unavailable | + +------+ + Encounter Details +--------+ + + + + | Date | Type | Department | Care Team | Description | +--------+ + + + + | 02/08/ | [facility] | [facility] | Elías Mast | | | 2001 | Encounter | MED CTR LABORATORY | MD Jose [address] | | | | | [address] | [place] | | | | | [place] | [place] [address] | | | | | [address] | [phone] | | | | | [phone] | | | +--------+ + + + [...] ROJAS | | | | | | [place] [address] | | | | | | [phone] | | | | | | | | +--------+---------+ + + + documented as of this encounter Visit Diagnoses Not on filedocumented in this encounter"
[~2019-11-30 12:25] MED LIST changes: +CIPRO500 MG PO; +FLAGYL500 MG PO; +NORCO 5-325 TA1 EACH PO; +PROMETHAZINE HC25 M1 PO
--- OUTSIDE RECORDS SUMMARY | 2019-11-30 12:31 | XMS ---
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 - 2 Visits in 30 Days CARE PROVIDERS ASA ROLLE [facility] 11/21/2019-Current PHONE: [phone] Thee has no Care Guidelines for this patient. Care History Medical/Surgical 11/21/2019 [facility] - PATIENT HAS AN APT FOR ED FOLLOW WITH PCP MAURO MANSFIELD - Thursday. Hannah VISIT COUNT (12 MO.) 6 [facility] TOTAL 6 NOTE: Visits indicate total known visits. ED/UCC VISIT TRACKING (12 MO.) 11/30/2019 12:25 [facility] [place] TYPE: Emergency COMPLAINT: - RESTLESS LEGS 11/22/2019 22:49 [facility] [place] TYPE: Emergency COMPLAINT: - ABD PAIN, BLOODY STOOL DIAGNOSES: - Noninfective gastroenteritis and colitis, unspecified - Unspecified abdominal pain - Nicotine dependence, unspecified, uncomplicated - Unspecified asthma, uncomplicated - Other long term care administrator (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 11/20/2019 10:56 [facility] [place] TYPE: Emergency COMPLAINT: - LEFT HAND PAIN DIAGNOSES: - Syncope and collapse - Nicotine dependence, unspecified, uncomplicated - Contusion of left hand, initial encounter - Other senior living (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 - Unspecified fall, initial encounter - Bradycardia, unspecified - Headache 11/07/2019 14:48 [facility] [place] TYPE: Emergency [...] NECK PAIN,LEFT HIP PAIN DIAGNOSES: - Other long term care administrator (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 - Contusion of left hip, initial encounter - Nicotine dependence, unspecified, uncomplicated - Fall on same level, unspecified, initial encounter - Pain in left hip - Unspecified asthma, uncomplicated 09/13/2019 06:30 [facility] [place] TYPE: Emergency COMPLAINT: - CHEST PAIN DIAGNOSES: - Precordial pain - Unspecified asthma, uncomplicated - Other senior living (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 - Nicotine dependence, unspecified, uncomplicated - Precordial pain INPATIENT VISIT TRACKING (12 MO.) No inpatient visits to display in this time frame [email or web address]
[2019-11-30] MEDS ORDERED: MIRAPEX1 MG PO (13:45)
== END 2019-11-30 14:11 | disposition home or self-care (01) ==
LOC: ED 12:25
DX: G25.81 Restless legs syndrome (principal); Z76.0 Encounter for issue of repeat prescription; F17.200 Nicotine dependence, unspecified, uncomplicated; Z79.899 Other long term (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
CPT/HCPCS: 99281

== ENCOUNTER 2019-12-10 20:15 | Emergency (ER) | payer OTHER ==
[~2019-12-10] VITALS: Ht 149.9 cm; Wt 59.0 kg
--- OUTSIDE RECORDS SUMMARY | 2019-12-10 20:18 | XMS ---
PreManage Notification: ALEXUS DAVID Security Force Variation Equipment Tender Events No recent Security Events currently on file CRITERIA MET - 6 ED Visits in 6 Months - [facility] - 2 Visits in 30 Days CARE PROVIDERS ASA ROLLE [facility] 11/21/2019-Current PHONE: [phone] Thee has no Care Guidelines for this patient. Care History Medical/Surgical 11/21/2019 [facility] - PATIENT HAS AN APT FOR ED FOLLOW WITH PCP MAURO MANSFIELD - Thursday. Hannah VISIT COUNT (12 MO[address] [facility] TOTAL 7 NOTE: Visits indicate total known visits. ED/UCC VISIT TRACKING (12 MO.) 12/10/2019 20:15 [facility] [place] TYPE: Emergency COMPLAINT: - CHEST PAIN 11/30/2019 12:25 [facility] [place] TYPE: Emergency COMPLAINT: - RESTLESS LEGS DIAGNOSES: - Nicotine dependence, unspecified, uncomplicated - Restless legs syndrome - Encounter for issue of repeat prescription - Other fpc (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 11/22/2019 22:49 [facility] [place] TYPE: Emergency COMPLAINT: - ABD PAIN, BLOODY STOOL DIAGNOSES: - Noninfective gastroenteritis and colitis, unspecified - Unspecified abdominal pain - Nicotine dependence, unspecified, uncomplicated - Unspecified asthma, uncomplicated - Other longwall headgate 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 11/20/2019 10:56 [facility] [place] TYPE: Emergency COMPLAINT: - LEFT HAND PAIN DIAGNOSES: - Syncope and collapse - Nicotine dependence, unspecified, uncomplicated - Contusion of left hand, initial encounter - Other fpc (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 - Unspecified fall, initial [...] NECK PAIN,LEFT HIP PAIN DIAGNOSES: - Other longwall headgate 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 - Contusion of left hip, initial encounter - Nicotine dependence, unspecified, uncomplicated - Fall on same level, unspecified, initial encounter - Pain in left hip - Unspecified asthma, uncomplicated 09/13/2019 06:30 [facility] [place] TYPE: Emergency COMPLAINT: - CHEST PAIN DIAGNOSES: - Precordial pain - Unspecified asthma, uncomplicated - Other fpc (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 - Nicotine dependence, unspecified, uncomplicated - Precordial pain INPATIENT VISIT TRACKING (12 MO.) No inpatient visits to display in this time frame [email or web address]
[2019-12-10] MEDS ORDERED: SUMATRIPTAN SU100 MG PO (20:25)
--- NOTE | 2019-12-11 12:07 | EKG ---
[facility] [address] [facility] [place], [place] [address] Signed Normal sinus rhythm Normal ECG When compared with ECG of 20-NOV-2019 10:59, Nonspecific T wave abnormality now evident in Lateral leads Confirmed by MARY FAITH DO ([id number]) on 12/11/2019 12:07:23 PM Electronically Signed By: MARY FAITH DO 12/11/19 1207 PATIENT NAME: JOANNSTEPHANIEALEXUS Electrocardiogram DATE OF : 70 PHYSICIAN: MARY FAITH DO REPORT #: [id number] REPORT IS CONFIDENTIAL AND NOT TO BE RELEASED WITHOUT AUTHORIZATION
== END 2019-12-10 21:46 | disposition home or self-care (01) ==
LOC: ED 20:15
DX: R55 Syncope and collapse (principal); J45.909 Unspecified asthma, uncomplicated; F17.200 Nicotine dependence, unspecified, uncomplicated; Z79.899 Other long term (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
CPT/HCPCS: 71045; 80053; 83735; 84484; 85025; 93005; 93010; 99284-25

== ENCOUNTER 2020-01-02 06:23 | Emergency (ER) | payer OTHER ==
[~2020-01-02] VITALS: Ht 149.9 cm; Wt 59.0 kg
[~2020-01-02 06:23] MED LIST changes: +SUMATRIPTAN SU100 MG PO
--- OUTSIDE RECORDS SUMMARY | 2020-01-02 06:26 | XMS ---
PreManage Notification: ALEXUS DAVID Security Service Attendant Events No recent Security Events currently on file CRITERIA MET - 6 ED Visits in 6 Months - [facility] - 2 Visits in 30 Days CARE PROVIDERS ASA ROLLE [facility] 11/21/2019-Current PHONE: [phone] Thee has no Care Guidelines for this patient. Care History Medical/Surgical 11/21/2019 [facility] - PATIENT HAS AN APT FOR ED FOLLOW WITH PCP MAURO MANSFIELD - Thursday. Hannah VISIT COUNT (12 MO.) 8 [facility] TOTAL 8 NOTE: Visits indicate total known visits. ED/UCC VISIT TRACKING (12 MO.) 01/02/2020 06:24 [facility] [place] TYPE: Emergency COMPLAINT: - FALL/KNEE AND ANKLE INJ 12/10/2019 20:15 [facility] [place] TYPE: Emergency COMPLAINT: - CHEST PAIN DIAGNOSES: - Unspecified asthma, uncomplicated - Nicotine dependence, unspecified, uncomplicated - Syncope and collapse - Other long term care phlebotomist (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 11/30/2019 12:25 [facility] [place] TYPE: Emergency COMPLAINT: - RESTLESS LEGS DIAGNOSES: - Nicotine dependence, unspecified, uncomplicated - Restless legs syndrome - Encounter for issue of repeat prescription - Other long term care phlebotomist (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 11/22/2019 22:49 [facility] [place] TYPE: Emergency COMPLAINT: - ABD PAIN, BLOODY STOOL DIAGNOSES: - Noninfective gastroenteritis and colitis, unspecified - Unspecified abdominal pain - Nicotine dependence, unspecified, uncomplicated - Unspecified asthma, uncomplicated - Other long term care phlebotomist (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 11/20/2019 10:56 [facility] [place] TYPE: Emergency COMPLAINT: - LEFT HAND PAIN DIAGNOSES: - Syncope and collapse - Nicotine dependence, unspecified, uncomplicated - Contusion of left hand, initial encounter - Other long term care phlebotomist (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 - Unspecified fall, initial [...] PAIN DIAGNOSES: - Other long term care phlebotomist (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 - Contusion of left hip, initial encounter - Nicotine dependence, unspecified, uncomplicated - Fall on same level, unspecified, initial encounter - Pain in left hip - Unspecified asthma, uncomplicated 09/13/2019 06:30 [facility] [place] TYPE: Emergency COMPLAINT: - CHEST PAIN DIAGNOSES: - Precordial pain - Unspecified asthma, uncomplicated - Other long term care phlebotomist (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 - Nicotine dependence, unspecified, uncomplicated - Precordial pain INPATIENT VISIT TRACKING (12 MO.) No inpatient visits to display in this time frame [id number]
== END 2020-01-02 07:24 | disposition home or self-care (01) ==
LOC: ED 06:23
DX: S83.91XA Sprain of unspecified site of right knee, initial encounter (principal); S93.401A Sprain of unspecified ligament of right ankle, initial encounter; F17.200 Nicotine dependence, unspecified, uncomplicated; X58.XXXA Exposure to other specified factors, initial encounter
CPT/HCPCS: 73560; 73610; 99283-25; A9270

== ENCOUNTER 2020-01-21 02:57 | Emergency (ER) | payer OTHER ==
[~2020-01-21] VITALS: Ht 149.9 cm; Wt 59.0 kg
--- OUTSIDE RECORDS SUMMARY | ~2020-01-21 | XMS | Encounter Summary ---
Demographics + + + | Address | [address] | | | [place] [address] | + + + | Home Phone | | + + + | Preferred Language | Unknown | + + + | Marital Status | | + + + | Scientologist Affiliation | 1013 | + + + | Race | White | + + + | Ethnic Group | Not or | + + + Author + + + | Author | [facility] | | | and [place] | + + + | Organization | [facility] | | | and [place] | + + + | Address | Unknown | + + + | Phone | Unavailable | + + + Support + + +---------+ + | Name | Relationship | Address | Phone | + + +---------+ + | Farnaz Null | ECON | Unknown | | + + +---------+ + Care Team Providers + +------+ + | Care Forming Machine Operator Name | Role | Phone | + +------+ + | Kalyani Lawrence PA-C | PCP | | + +------+ + Encounter Details +--------+ + + + + | Date | Type | Department | Care Team | Description | +--------+ + + + + | 12/27/ | Imaging | [facility] | Provider, | | | 2019 | Exam | MED CTR EXTERNAL | MD [address] | | | | | IMAGING [address] | [address] | | | | | [place] | [facility] [address] | | | | | [place] [address] | | | | | | [phone] | | | +--------+ + + + + Social History + +-------+ +--------+------+ | Tobacco Use | Types | Packs/Day | Years | Date | | | | | Used | | + +-------+ +--------+------+ | Never Assessed | | | | | + +-------+ +--------+------+ + + + | Sex Assigned at | Date Recorded | | | | + + + | Not on file | | + + + documented as of this encounter Plan of Treatment +--------+---------+ + + + | Date | Type | Specialty | Care Team | Description | +--------+---------+ + + + | 02/08/ Office | Pulmonology | Liseth Myers | | | 2019 | Visit | | MD Selin [address] | | | | | | [address] [place] | | | | | | [place] [address] | | | | | | [phone] | | | | | | | | +--------+---------+ + + + documented as of this encounter Procedures + +--------+ + + + | Procedure Name | Priori | Date/Time | Associated Diagnosis | Comments | | | ty | | | | + +--------+ + + + | XR CHEST 1 VIEW | Routin | 12/10/2019 | | Results for this | | | e | 12:00 AM | | procedure are in the | | | | PDT | | results section. | + +--------+ + + + documented in this encounter Results XR Chest 1 Vw (12/10/2019 12:00 AM PDT) + + | Specimen | + + | | + + + + + | Narrative | Performed At | + + + | External films for comparison only | [facility] | | | | | No results will be in the chart. | | + + + + +---------+ + + | Performing | Address | City/State/Zipcode | Phone Number | | Organization | | | | + +---------+ + + | [facility] | | | | + +---------+ + + documented in this encounter Visit Diagnoses Not on filedocumented in this encounter"
--- OUTSIDE RECORDS SUMMARY | ~2020-01-21 | XMS | Encounter Summary ---
Demographics + + + | Address | [address] | | | [place] [address] | + + + | Home Phone | | + + + | Preferred Language | Unknown | + + + | Marital Status | | + + + | Episcopal Affiliation | 1013 | + + + | Race | White | + + + | Ethnic Group | Not or | + + + Author + + + | Author | [facility] | | | and [place] | + + + | Organization | [facility] | | | and [...] Team Providers + +------+ + | Care Glazing Department Supervisor Name | Role | Phone | + +------+ + PCP | Unavailable | + +------+ + Encounter Details +--------+ + + + + | Date | Type | Department | Care Team | Description | +--------+ + + + + | 02/08/ | [facility] | [facility] | Elías Mast | | | 2001 | Encounter | MED CTR LABORATORY | MD Jose [address] | | | | | [address] [place] | [address] [place] | | | | | [place] | [place] [address] | | | | | [address] | [phone] | | | | | [phone] | | | +--------+ + + + [...] | +--------+---------+ + + + | 02/08/ | Office | Pulmonology | Liseth Myers | | | 2020 | Visit | | MD Selin [address] | | | | | | [place] | | | | | | [place] [address] | | | | | | [phone] | | | | | | | | +--------+---------+ + + + documented as of this encounter Visit Diagnoses Not on filedocumented in this encounter"
--- OUTSIDE RECORDS SUMMARY | ~2020-01-21 | XMS | Encounter Summary ---
Demographics + + + | Address | [address] | | | [place] [address] | + + + | Home Phone | | + + + | Preferred Language | Unknown | + + + | Marital Status | | + + + | Yazdanism Affiliation | 1013 | + + + | Race | White | + + + | Ethnic Group | Not or | + + + Author + + + | Author | [facility] | | | and [place] | + + + | Organization | [facility] | | | [...] Team Providers + +------+ + | Care Rn Rehabilitation Name | Role | Phone | + +------+ + PCP | Unavailable | + +------+ + Encounter Details +--------+ + + + + | Date | Type | Department | Care Team | Description | +--------+ + + + + | 11/10/ | Hospital | [facility] | Elías Mast | | | 2001 | Encounter | MED CTR SLEEP | MD [address] | | | | | CENTER [address] | [address] [facility] | | | | | [place] | [place] [address] | | | | | [address] | [phone] | | | | | [phone] | | | +--------+ + + + [...] | | | | | [place] [address] | | | | | | [phone] | | | | | | | | +--------+---------+ + + + documented as of this encounter Visit Diagnoses Not on filedocumented in this encounter"
--- OUTSIDE RECORDS SUMMARY | ~2020-01-21 | XMS | Clinical Summary ---
Demographics + + + | Address | [address] | | | [place] [address] | + + + | Home Phone | | + + + | Preferred Language | Unknown | + + + | Marital Status | | + + + | Baptist Affiliation | 1013 | + + + | Race | White | + + + | Ethnic Group | Not or | + + + Author + + + | Author | [facility] | | | and [place] | + + + | Organization | [facility] | | [...] Team Providers + +------+ + | Care Medical Receptionist Name | Role | Phone | + +------+ + | Kalyani Lawrence PA-C | PCP | | + +------+ + Allergies No Known Allergies Medications + + + +---------+------+------+-------+ | Medication | Sig | Dispensed | Refills | Star | End | Statu | | | | | | t | Date | s | | | | | | Date | | | + + + +---------+------+------+-------+ | albuterol 90 | Inhale 2 puffs into | | 0 | | | Activ | | mcg/puff inhaler | the lungs every 6 | | | | | e | | | hours as needed for | | | | | | | | Wheezing. | | | | | | + + + +---------+------+------+-------+ | albuterol 0.63 | Take 1 ampule by | | 0 | | | Activ | | mg/3 mL nebulizer | nebulization every 6 | | | | | e | | solution | hours as needed for | | | | | | | | Wheezing. | | | | | | + + + +---------+------+------+-------+ | pramipexole | Take 1 mg by mouth 3 | | 0 | | | Activ | | (MIRAPEX) 1 MG | times daily. | | | | | e | | tablet | | | | | | | + + + +---------+------+------+-------+ Active Problems Not on file Encounters +--------+ + + + + | Date | Type | Specialty | Care Team | Description | +--------+ + + + + | 12/27/ | Imaging | Radiology | Provider, | | | 2019 | Exam | | Jesus, | | +--------+ + + + + | 12/25/ | Office | Cardiology | Nadeem Ritter, | Hypertension, | | 2019 | Visit | | | unspecified type | | | | | | (Primary Dx) | +--------+ + + + + | 12/25/ | Orders Only | Cardiology | Kelley Kulkarni, | Hypertension, | | 2019 | | | ALL TERRAIN VEHICLE RACER | unspecified type | +--------+ + + + + from Last 3 Months Social History + +-------+ +--------+------+ | Tobacco [...] on file | | + + + Last Filed Vital Signs + + + [...] | | + + + + + Plan of Treatment +--------+---------+ + + + | Date | Type | Specialty | Care Team | Description | +--------+---------+ + + + | 02/08/ | Office | Pulmonology | Liseth Myers | | | 2019 | Visit | | MD Selin [address] | | | | | | [place] | | | | | | [place] [address] | | | | | | [phone] | | | | | | | | +--------+---------+ + + + + + + + + | Health Maintenance | Due Date | Last | Comments | | | | Done | | + + + + + | Hepatitis C | | | | | Screening | 0 | | | + + + + + | Med Mgmt: Cr | | | | | | 0 | | | + + + + + | Med Mgmt: eGFR | | | | | | 0 | | | + + + + + | Medication | | | | | Management | 0 | | | + + + + + | Vaccine: | | | | | Pneumococcal 19-64 | 6 | | | | (1 of 1 - PPSV23) | | | | + + + + + | Cervical Cancer | | | | | Screening (Pap) | 0 | | | + + + + + | Breast Cancer | | | | | Screening | 5 | | | + + + + + | Vaccine: Influenza | | | | | (#1) | 0 | | | + + + + + | Vaccine: | | 05/25/19 | | | Dtap/Tdap/Td (2 - | 8 | 18 | | | Td) | | | | + + + + + Procedures + +--------+ + + + | Procedure Name | Priori | Date/Time | Associated Diagnosis | Comments | | | ty | | | | + +--------+ + + + | ECG 12 LEAD | Routin | 12/26/2019 | Hypertension, | Results for this | | | e | 8:49 AM | unspecified type | procedure are in the | | | | PDT | | results section. | + +--------+ + + + | XR CHEST 1 VIEW | Routin | 12/10/2019 | | Results for this | | | e | 12:00 AM | | procedure are in the | | | | PDT | | results section. | + +--------+ + + + from Last 3 Months Results ECG 12 lead (12/26/2019 8:49 AM [...] | | | | SUSY RITTER MD ([id number]) on | | | | | | [...] | | | + +---------+ + + XR Chest 1 Vw (12/10/2019 12:00 AM [...] | | | + +---------+ + + from Last 3 Months Insurance + +--------+ +--------+ +---------+--------+ | Payer | Benefi | Subscriber | Effect | Phone | Address | Type | | | t Plan | ID | [id number] | | | | | | / | | Dates | | | | | | Group | | | | | | + +--------+ +--------+ +---------+--------+ | [employer] | [employer] | [id number] | | [phone] | | Medica | | MEDICAID HMO | HEALTH | | 020-Pr | 1 | | id | | | MDCD | | esent | | | | | | [place]MO [place] | | | | | | + +--------+ +--------+ +---------+--------+ | [employer] | [employer] | [id number] | 12/27/19 | [phone] | | Medica | | MEDICAID HMO | HEALTH | | 20-Pre | 1 | | id | | | MDCD | | sent | | | | | | [place]MO [place] | | | | | | + +--------+ +--------+ +---------+--------+ + +--------+ +--------+ + + | Guarantor Name | Accoun | Relation to | Date | Phone | Billing Address | | | t Type | Patient | of | | | | | | | | | | + +--------+ +--------+ + + | Anna Sandoval | Person | Self | [birth year] | [address] | | | al/Fam | | 1970 | [address] | [place] [address] | | | cara | | | 6 (Home) | | + +--------+ +--------+ + + | Anna Sandoval | Person | Self | [birth year] | [address] | | | al/Fam | | 1970 | [address] | [place] [address] | | | cara | | | 6 (Home) | | + +--------+ +--------+ + + Advance Directives + + + + + | Type | Date Recorded | Patient | Explanation | | | | Call Box Wirer | | + + + + + | Power of | | | | | Quality Assurance Supervisor Trim | | | | + + + + + | Advance | | | | | Directive | | | | + + + + +
--- OUTSIDE RECORDS SUMMARY | ~2020-01-21 | XMS | Encounter Summary ---
Demographics + + + | Address | [address] | | | [place] [address] | + + + | Home Phone | | + + + | Preferred Language | Unknown | + + + | Marital Status | | + + + | Confucianism Affiliation | 1013 | + + + | Race | White | + + + | Ethnic Group | Not or | + + + Author + + + | Author | [facility] | | | and [place] | + + + | Organization | [facility] | | | [...] Team Providers + +------+ + | Care Software Engineer Advisor Name | Role | Phone | + +------+ + PCP | Unavailable | + +------+ + Encounter Details +--------+ + + + + | Date | Type | Department | Care Team | Description | +--------+ + + + + | 12/01/ | [facility] | [facility] | Elías Mast | | | 2001 | Encounter | MED CTR LABORATORY | MD Jose [address] | | | | | [address] [place] | [address] [place] | | | | | [place] | [place] [address] | | | | | [address] | [phone] | | | | | [phone] | | | +--------+ + + + [...] | | | | | [place] [address] | | | | | | [phone] | | | | | | | | +--------+---------+ + + + documented as of this encounter Visit Diagnoses Not on filedocumented in this encounter"
--- OUTSIDE RECORDS SUMMARY | ~2020-01-21 | XMS | Encounter Summary ---
Demographics + + + | Address | [address] | | | [place] [address] | + + + | Home Phone | | + + + | Preferred Language | Unknown | + + + | Marital Status | | + + + | Restoration Affiliation | 1013 | + + + | Race | White | + + + | Ethnic Group | Not or | + + + Author + + + | Author | [facility] | | | and [place] | + + + | Organization | [facility] | | [...] Team Providers + +------+ + | Care Mass Spectroscopist Name | Role | Phone | + [...] | | | Consult | [place], | [place], [place] | | | | | | [place] [address] | [address] Phone: | | | | | | Phone: | [phone] | | | | | | [phone] | Fax: | | | | | | Fax: | [phone] | | | | | | [phone] | | + +--------+ + + + + Encounter Details +--------+---------+ + + + | Date | Type | Department | Care Team | Description | +--------+---------+ + + + | 12/25/ | Office | [facility] | Ewer, Nadeem N, | Hypertension, | | 2020 | Visit | CARDIOLOGY [place] | [address] | unspecified type | | | | [address] | [place] [address] | (Primary Dx) | | | | [place], [place] | [phone] | | | | | [address] | | | | | | [phone] | | | +--------+---------+ + + + [...] 49-year-old female, referred from Kalyani Lawrence in [place]. She has what she describes as a "lifetime" history of low blood pressure and syncopal episodes. She has frequent falls . She has had multiple concussions. She recently relocated to [place] from [place]. She wa s informed that she sometimes [...] a normal heart cath in 2010 at [facility]. No cardiac records from [place]. She denies alcohol or drug use. 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 Increase flui d intake. Increase salt intake. Continue with noted meds, stressed compliance. Urged to stop smoking. We will see after the interrogation and we see her old records. Documented by January. Cardiac Medications: Continue as prescribed. Nadeem Ritter MD FACC, FACP, FASNC documented in this en counter Plan of Treatment +--------+---------+ + + + | Date | Type | Specialty | Care Team | Description | +--------+---------+ + + + | 02/08/ | Office | Pulmonology | Liseth Myers | | 2019 | Visit | | MD Selin [address] | | | | | | [place] | | | | | | [place] [address] | | | | | | [phone] | | | | | | | | +--------+---------+ + + + + + +--------+ + + | Name [...] | | | | SUSY RITTER MD ([id number]) on | | | | | | [...]
--- OUTSIDE RECORDS SUMMARY | ~2020-01-21 | XMS | Encounter Summary ---
Demographics + + + | Address | [address] | | | [place] [address] | + + + | Home Phone | | + + + | Preferred Language | Unknown | + + + | Marital Status | | + + + | Presybeterian Affiliation | 1013 | + + + | Race | White | + + + | Ethnic Group | Not or | + + + Author + + + | Author | [facility] | | | and [place] | + + + | Organization | [facility] | | | and [...] Team Providers + +------+ + | Care Neighborhood Planner Name | Role | Phone | + [...] [place] | | | | | [address] [place], [place] | [place] [address] | | | | | [address] | [phone] | | | | | [phone] | | | +--------+ + + + [...] | | | | | [place] [address] | | | | | | [phone] | | | | | | | | +--------+---------+ + + + documented as of this encounter Visit Diagnoses Not on filedocumented in this encounter"
--- OUTSIDE RECORDS SUMMARY | ~2020-01-21 | XMS | Encounter Summary ---
Demographics + + + | Address | [address] | | | [place] [address] | + + + | Home Phone | | + + + | Preferred Language | Unknown | + + + | Marital Status | | + + + | Lutheran Affiliation | 1013 | + + + | Race | White | + + + | Ethnic Group | Not or | + + + Author + + + | Author | [facility] | | | and [place] | + + + | Organization | [facility] | | | and [...] Team Providers + +------+ + | Care Chicken Cleaner Name | Role | Phone | + +------+ + PCP | Unavailable | + +------+ + Encounter Details +--------+ + + + + | Date | Type | Department | Care Team | Description | +--------+ + + + + | 11/26/ | Hospital | [facility] | Mat, | Unspecified chest | | 2010 | Encounter | CONVERSION DEP [address] | Kareem Ervin, | pain | | | | [place] | [address] | | | | | [facility] | [place] | | | | | [address] | [address] | | | | | [phone] | [phone] | | | | | | | [...] [address] | | | | | | [address] | | | | | | [place] [address] | | | | | | [phone] | | | | | | | [...] | | | 11/26/2010 12:44 P P [id number] | | | Read by KAREEM RIVERO [...] | P | | P | | [id number]/ | | | | Read by | | KAREEM RIVERO MD 11/26/2010 12:44 P | | | | | + + documented in this encounter Visit Diagnoses + + | Diagnosis | + + | Chest pain, unspecified | + + documented in this encounter"
--- OUTSIDE RECORDS SUMMARY | ~2020-01-21 | XMS | Encounter Summary ---
Demographics + + + | Address | [address] | | | [place] [address] | + + + | Home Phone | | + + + | Preferred Language | Unknown | + + + | Marital Status | | + + + | Mu-Ism Affiliation | 1013 | + + + | Race | White | + + + | Ethnic Group | Not or | + + + Author + + + | Author | [facility] | | | and [place] | + + + | Organization | [facility] | | | [...] Team Providers + +------+ + | Care Call Worker Person Name | Role | Phone | + [...] | | | | [place] | [facility] [address] | | | | | [place] [address] | | | | | | [phone] | | | +--------+ + + + [...] | | | | | [place] [address] | | | | | | [phone] | | | | | | | [...]
--- OUTSIDE RECORDS SUMMARY | ~2020-01-21 | XMS | Encounter Summary ---
Demographics + + + | Address | [address] | | | [place] [address] | + + + | Home Phone [...] + | Author | [facility] | | | and [place] | + + + | Organization | [facility] | | | and [...] Team Providers + +------+ + | Care Wheat Inspector Name | Role | Phone | + +------+ + | Kalyani Lawrence PA-C | PCP | | + +------+ + Encounter Details +--------+ + + + + | Date | Type | Department | Care Team | Description | +--------+ + + + + | 12/25/ | Orders Only | [facility] | Kelley Kulkarni, | Hypertension, | | 2020 | | CARDIOLOGY [place] | [place] | unspecified type | | | | [address] | | | | | | [place] | | | | | | [address] | | | | | | [phone] | | | +--------+ + + + [...] | | | | | [place] [address] | | | | | | [phone] | | | | | | | [...] | | | | SUSY DRIVER MD ([id number]) on | | | | [...]
--- OUTSIDE RECORDS SUMMARY | ~2020-01-21 | XMS | Encounter Summary ---
Demographics + + + | Address | [address] | | | [place] [address] | + + + | Home Phone | | + + + | Preferred Language | Unknown | + + + | Marital Status | | + + + | Gnosticist Affiliation | 1013 | + + + | Race | White | + + + | Ethnic Group | Not or | + + + Author + + + | Author | [facility] | | | and [place] | + + + | Organization | [facility] | | | [...] Team Providers + +------+ + | Care Pipe And Boiler Covers Supervisor Name | Role | Phone | [...] | | CENTER [address] | [facility] [place], | | | | | [place] | [place] [address] | | | | | [address] | [phone] | | | | | [phone] | | | +--------+ + + + [...] | | | | | [place] [address] | | | | | | [phone] | | | | | | | | +--------+---------+ + + + documented as of this encounter Visit Diagnoses Not on filedocumented in this encounter"
--- OUTSIDE RECORDS SUMMARY | 2020-01-21 03:00 | XMS ---
PreManage Notification: ALEXUS DAVID Security Gaming Pit Boss Events No recent Security Events currently on file CRITERIA MET - 6 ED Visits in 6 Months - [facility] - 2 Visits in 30 Days CARE PROVIDERS ASA ROLLE [facility] 11/21/2019-Current PHONE: [phone] Thee has no Care Guidelines for this patient. Care History Medical/Surgical 01/03/2020 [facility] - PATIENT HAS A FOLLOW UP APT WITH DR ROLLE ON 01/11/2020 DUE TO RECENT ED VISITS. 11/21/2019 [facility] - PATIENT HAS AN APT FOR ED FOLLOW WITH PCP MAURO MANSFIELD - Thursday. E.DLisa VISIT COUNT (12 MO.) 9 [facility]. TOTAL 9 NOTE: Visits indicate total known visits. ED/C VISIT TRACKING (12 MO.) 01/21/2020 02:58 [facility] [place] TYPE: Emergency COMPLAINT: - DENTAL PAIN 01/02/2020 06:24 [facility] [place] TYPE: Emergency COMPLAINT: - FALL/KNEE AND ANKLE INJ DIAGNOSES: - Sprain of unspecified site of right knee, initial encounter - Sprain of unspecified ligament of right ankle, initial encoun - Exposure to other specified factors, initial encounter - Nicotine dependence, unspecified, uncomplicated - Pain in right knee 12/10/2019 20:[address] [facility] [address] [facility] [place] TYPE: Emergency COMPLAINT: - CHEST PAIN DIAGNOSES: - Unspecified asthma, uncomplicated - Nicotine dependence, unspecified, uncomplicated - Syncope and collapse - Other medical terminologist (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 11/30/2019 12:25 [facility] [place] [place] TYPE: Emergency COMPLAINT: - RESTLESS LEGS DIAGNOSES: - Nicotine dependence, unspecified, uncomplicated - Restless legs syndrome - Encounter for issue of repeat prescription - Other assisted (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 [facility] COMPLAINT: - ABD PAIN, BLOODY STOOL DIAGNOSES: - Noninfective gastroenteritis and colitis, unspecified - Unspecified abdominal pain - Nicotine dependence, unspecified, uncomplicated - Unspecified asthma, uncomplicated - Other assisted (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 11/20/2019 10:[address] [facility] [address] [place] [place] TYPE: Emergency COMPLAINT: - LEFT HAND PAIN DIAGNOSES: - Syncope and collapse - Nicotine dependence, unspecified, uncomplicated - Contusion of left hand, initial encounter - Other medical terminologist (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 - Unspecified fall, initial [...] NECK PAIN,LEFT HIP PAIN DIAGNOSES: - Other assisted (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 - Contusion of left hip, initial encounter - Nicotine dependence, unspecified, uncomplicated - Fall on same level, unspecified, initial encounter - Pain in left hip - Unspecified asthma, uncomplicated 09/13/2019 06:30 [facility] [place] TYPE: Emergency COMPLAINT: - CHEST PAIN DIAGNOSES: - Precordial pain - Unspecified asthma, uncomplicated - Other assisted (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 - Nicotine dependence, unspecified, uncomplicated - Precordial pain INPATIENT VISIT TRACKING (12 MO.) No inpatient visits to display in this time frame [email or web address]
[2020-01-21] MEDS ORDERED: VENTOLIN HFA18 GM INH (03:06)
[2020-01-21] MEDS ORDERED: IPRAT-ALBUT 0.5-3 ML INH (03:07)
[2020-01-21] MEDS ORDERED: PENICILLIN V P500 MG PO (03:22)
== END 2020-01-21 03:33 | disposition home or self-care (01) ==
LOC: ED 02:57
DX: K02.9 Dental caries, unspecified (principal); J45.909 Unspecified asthma, uncomplicated; F17.200 Nicotine dependence, unspecified, uncomplicated; Z79.899 Other long term (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
CPT/HCPCS: 99283

== ENCOUNTER 2020-01-23 19:09 | Emergency (ER) | payer OTHER ==
[~2020-01-23] VITALS: Ht 149.9 cm; Wt 65.8 kg
--- OUTSIDE RECORDS SUMMARY | ~2020-01-23 | XMS | Encounter Summary ---
Demographics + + + | Address | [address] | | | [place] [address] | + + + | Home Phone | | + + + | Preferred Language | Unknown | + + + | Marital Status | | + + + | Buddhism Affiliation | 1013 | + + + | Race | White | + + + | Ethnic Group | Not or | + + + Author + + + | Author | [facility] | | | and [place] | + + + | Organization | [facility] | | | and [...] Team Providers + +------+ + | Care Fire Patrol Name | Role | Phone | + +------+ + PCP | Unavailable | + +------+ + Encounter Details +--------+ + + + + | Date | Type | Department | Care Team | Description | +--------+ + + + + | 08/02/ | Hospital | [facility] | Eloina Bustamante | | | 2015 | Encounter | HOSPITAL EMERGENCY | VINNY Valentin [address] | | | | | CENTER [address] | [facility] [place], | | | | | [place] | [place] [address] | | | | | [address] | [phone] | | | | | [phone] | | | +--------+ + + + [...] | | | | | [place] [address] | | | | | | [phone] | | | | | | | | +--------+---------+ + + + documented as of this encounter Visit Diagnoses Not on filedocumented in this encounter"
--- OUTSIDE RECORDS SUMMARY | ~2020-01-23 | XMS | Encounter Summary ---
Demographics + + + | Address | [address] | | | [place] [address] | + + + | Home Phone | | + + + | Preferred Language | Unknown | + + + | Marital Status | | + + + | Orthodox Affiliation | 1013 | + + + | Race | White | + + + | Ethnic Group | Not or | + + + Author + + + | Author | [facility] | | | and [place] | + + + | Organization | [facility] | | [...] Team Providers + +------+ + | Care Qc Scientist Name | Role | Phone | + [...] | | | | [place] | [facility] [address] | | | | | [place] [address] | | | | | | [phone] | | | +--------+ + + + [...] | | | | | [place] [address] | | | | | | [phone] | | | | | | | [...]
--- OUTSIDE RECORDS SUMMARY | ~2020-01-23 | XMS | Encounter Summary ---
Demographics + + + | Address | [address] | | | [place] [address] | + + + | Home Phone | | + + + | Preferred Language | Unknown | + + + | Marital Status | | + + + | Zoroastrianism Affiliation | 1013 | + + + | Race | White | + + + | Ethnic Group | Not or | + + + Author + + + | Author | [facility] | | | and [place] | + + + | Organization | [facility] | | | [...] Team Providers + +------+ + | Care Postbed Stitcher Name | Role | Phone | + +------+ + PCP | Unavailable | + +------+ + Encounter Details +--------+ + + + + | Date | Type | Department | Care Team | Description | +--------+ + + + + | 11/10/ | Hospital | [facility] | Elías Mast | | | 2001 | Encounter | MED CTR SLEEP | MD Jose [address] | | | | | CENTER [address] | [address] [facility] | | | | | [place] | [place] [address] | | | | | [address] | [phone] | | | | | [phone] | | | +--------+ + + + [...] | | | | | [place] [address] | | | | | | [phone] | | | | | | | | +--------+---------+ + + + documented as of this encounter Visit Diagnoses Not on filedocumented in this encounter"
--- OUTSIDE RECORDS SUMMARY | ~2020-01-23 | XMS | Encounter Summary ---
Demographics + + + | Address | [address] | | | [place] [address] | + + + | Home Phone | | + + + | Preferred Language | Unknown | + + + | Marital Status | | + + + | Faith Affiliation | 1013 | + + + | Race | White | + + + | Ethnic Group | Not or | + + + Author + + + | Author | [facility] | | | and [place] | + + + | Organization | [facility] | | | and [...] Team Providers + +------+ + | Care Precision Printing Worker Name | Role | Phone | + +------+ + PCP | Unavailable | + +------+ + Encounter Details +--------+ + + + + | Date | Type | Department | Care Team | Description | +--------+ + + + + | 02/08/ | [facility] | [facility] | Elías Mast | | | 2001 | Encounter | MED CTR LABORATORY | MD Jose [address] | | | | | [address] [place] | [address] [place] | | | | | [place] | [place] [address] | | | | | [address] | [phone] | | | | | [phone] | | | +--------+ + + + [...] | | | | | [place] [address] | | | | | | [phone] | | | | | | | | +--------+---------+ + + + documented as of this encounter Visit Diagnoses Not on filedocumented in this encounter"
--- OUTSIDE RECORDS SUMMARY | ~2020-01-23 | XMS | Encounter Summary ---
Demographics + + + | Address | [address] | | | [place] [address] | + + + | Home Phone | | + + + | Preferred Language | Unknown | + + + | Marital Status | | + + + | Methodist Affiliation | 1013 | + + + | Race | White | + + + | Ethnic Group | Not or | + + + Author + + + | Author | [facility] | | | and [place] | + + + | Organization | [facility] | | | [...] Team Providers + +------+ + | Care Electrotherapist Name | Role | Phone | + +------+ + PCP | Unavailable | + +------+ + Encounter Details +--------+ + + + + | Date | Type | Department | Care Team | Description | +--------+ + + + + | 12/01/ | [facility] | [facility] | Elías Mast | | | 2001 | Encounter | MED CTR LABORATORY | MD Jose [address] | | | | | [address] [place] | [address] [place] | | | | | [place] | [place] [address] | | | | | [address] | [phone] | | | | | [phone] | | | +--------+ + + + [...] | | | | | [place] [address] | | | | | | [phone] | | | | | | | | +--------+---------+ + + + documented as of this encounter Visit Diagnoses Not on filedocumented in this encounter"
--- OUTSIDE RECORDS SUMMARY | ~2020-01-23 | XMS | Encounter Summary ---
Demographics + + + | Address | [address] | | | [place] [address] | + + + | Home Phone | | + + + | Preferred Language | Unknown | + + + | Marital Status | | + + + | Yarsani Affiliation | 1013 | + + + | Race | White | + + + | Ethnic Group | Not or | + + + Author + + + | Author | [facility] | | | and [place] | + + + | Organization | [facility] | | | [...] Providers + +------+ + | Care Supervisor Grips Name | Role | Phone | + +------+ + | Kalyani Lawrence PA-C | PCP | | + +------+ + Encounter Details +--------+ + + + + | Date | Type | Department | Care Team | Description | +--------+ + + + + | 12/25/ | Orders Only | [facility] | Kelley Kulkarni, | Hypertension, | | 2020 | | CARDIOLOGY [place] | RANJIT | unspecified type | | | | [address] | | | | | | [place] | | | | | | [address] | | | | | | [phone] | | | +--------+ + + + [...] | | | | | [place] [address] | | | | | | [phone] | | | | | | | [...] + + documented in this encounter Results ECG 12 lead (12/26/2019 [...] | | | | | | SUSY DRIVER MD ([id number]) on | | | | | | [...] | + + | Hypertension, unspecified type | + + documented in this encounter"
--- OUTSIDE RECORDS SUMMARY | ~2020-01-23 | XMS | Clinical Summary ---
Demographics + + + | Address | [address] | | | [place] [address] | + + + | Home Phone [...] + + + | Author | [facility] | | | and [place] | + + + | Organization | [facility] | | | [...] Team Providers + +------+ + | Care Brusher Machine Name | Role | Phone | + [...] Hypertension, | | 2019 | | | RANGE MASTER | unspecified type | +--------+ + + [...] | | | | | [place] [address] | | | | | | [phone] | | | | | | | [...] | + + + + + | Colorectal Cancer | | | | | Screening | 0 | | | | (Colonoscopy) | | | | + + + + + | Vaccine: Zoster (1 | | | | | of 2) | 0 | | | + + [...] WAVE AXIS | 65 | degrees | BAILEY MUSE | | + + + + [...] | [employer] | MOD[employer] | [id number] | | [phone] | | Medica | | MEDICAID HMO | HEALTH | | 020-Pr | 1 | | id | | | MDCD | | esent | | | | | | [place] | | | | | | + +--------+ +--------+ +---------+--------+ | [employer] | [employer] | [id number] | 12/27/19 | [phone] | | Medica | | [...] | | al/Fam | | 1970 | [phone] | [place] [address] | | | cara | | | 6 (Home) | | + +--------+ +--------+ + + | Anna Sandoval | Person | Self | [birth year] | [address] | | | al/Fam | | 1970 | [id number] | [place] [address] | | | cara | | | 6 (Home) | | + +--------+ +--------+ + + | Anna Sandoval | Person | Self | [birth year] | | [address] | | | al/Fam | | 1970 | [address] | [place] [address] | | | cara | | | 6 (Home) | | + +--------+ +--------+ + + Advance Directives + + + + + | Type | Date Recorded | Patient | Explanation | | | | Satellite Dish Repairer | | + + + + + | Power of | | | | | Patient Transition Specialist | | | | + + + + + | Advance | | | | | Directive | | | | + + + + +
--- OUTSIDE RECORDS SUMMARY | ~2020-01-23 | XMS | Encounter Summary ---
Demographics + + + | Address | [address] | | | [place] [address] | + + + | Home Phone | | + + + | Preferred Language | Unknown | + + + | Marital Status | | + + + | Gnosticist Affiliation | 1013 | + + + | Race | White | + + + | Ethnic Group | Not or | + + + Author + + + | Author | [facility] | | | and [place] | + + + | Organization | [facility] | | | [...] Team Providers + +------+ + | Care Flight Teacher Name | Role | Phone | + [...] | [address] [place], [place] | [place] [address] | | | | | [address] | [phone] | | | | | [phone] | | | +--------+ + + + [...] | | | | | [place] [address] | | | | | | [phone] | | | | | | | | +--------+---------+ + + + documented as of this encounter Visit Diagnoses Not on filedocumented in this encounter"
--- OUTSIDE RECORDS SUMMARY | ~2020-01-23 | XMS | Encounter Summary ---
Demographics + + + | Address | [address] | | | [place] [address] | + + + | Home Phone | | + + + | Preferred Language | Unknown | + + + | Marital Status | | + + + | Sabianism Affiliation | 1013 | + + + [...] Team Providers + +------+ + | Care Finisher Polisher Name | Role | Phone | + [...] [place] | | | | | [facility] | [place] | | | | | [address] | [address] | | | | | [phone] | [phone] | | | | | | | [...] | | | | | [place] [address] | | | | | | [phone] | | | | | | | [...] | | | 11/26/2010 12:44 P P [id number] | | | Read by KAREEM RIVERO [...] | P | | P | | [id number]/ | | | | Read by | | KAREEM RIVERO MD 11/26/2010 12:44 P | | | | | + + documented in this encounter Visit Diagnoses + + | Diagnosis | + + | Chest pain, unspecified | + + documented in this encounter"
--- OUTSIDE RECORDS SUMMARY | ~2020-01-23 | XMS | Encounter Summary ---
Demographics + + + | Address | [address] | | | [place] [address] | + + + | Home Phone [...] Team Providers + +------+ + | Care Allergist Name | Role | Phone | + [...] | | | Consult | TOM, | [place], [place] | | | | | | [place] [address] | [address] Phone: | | | | | | Phone: | [phone] | | | | | | [phone] | Fax: | | | | | | Fax: | [phone] | | | | | | [phone] | | + +--------+ + + + + Encounter Details +--------+---------+ + + + | Date | Type | Department | Care Team | Description | +--------+---------+ + + + | 12/25/ | Office | [facility] | Ewer, Nadeem N, | Hypertension, | | 2020 | Visit | CARDIOLOGY [place] | [address] | unspecified type | | | | [address] | [place] [address] | (Primary Dx) | | | | [place], [place] | [phone] | | | | | [address] | | | | | | [phone] | | | +--------+---------+ + + + [...] 49-year-old female, referred from Kalyani Lawrence in [place]. She has what she describes as a "lifetime" history of low blood pressure and syncopal episodes. She has frequent falls . She has had multiple concussions. She recently relocated to [place] from [place]. She wa s informed that she sometimes [...] a normal heart cath in 2010 at [facility]. No cardiac records from [place]. She denies alcohol or drug use. 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 Increase flui d intake. Increase salt intake. [...] | | | | | [place] [address] | | | | | | [phone] | | | | | | | [...] | | | | SUSY RITTER MD ([id number]) on | | | | | | [...]
--- OUTSIDE RECORDS SUMMARY | ~2020-01-23 | XMS | Encounter Summary ---
Demographics + + + | Address | [address] | | | [place] [address] | + + + | Home Phone [...] + + + | Author | [facility] | | | and [place] | + + + | Organization | [facility] | | | [...] Providers + +------+ + | Care Oracle Adf Developer Name | Role | Phone | + [...] | | | | ZAKIYA FLEMING | [facility] [address] | | | | | [place] [address] | | | | | | [phone] | | | +--------+ + + + [...] | | | | | [place] [address] | | | | | | [phone] | | | | | | | [...]
[~2020-01-23 19:09] MED LIST changes: +IPRAT-ALBUT 0.5-3 ML INH; +PENICILLIN V P500 MG PO; +VENTOLIN HFA18 GM INH
--- OUTSIDE RECORDS SUMMARY | 2020-01-23 19:12 | XMS ---
PreManage Notification: ALEXUS DAVID Security Passenger Brakeman Events No recent Security Events currently on file CRITERIA MET - 6 ED Visits in 6 Months - [facility] - 2 Visits in 30 Days CARE PROVIDERS ASA ROLLE [facility] 11/21/2019-Current PHONE: [phone] Thee has no Care Guidelines for this patient. Care History Medical/Surgical 01/23/2020 [facility] - PATIENT CONTACT NUMBER GOES DIRECTLY TO [facility] LEFT 2X MESSAGES- NO RETURN CALL. 01/03/2020 [facility] - PATIENT HAS A FOLLOW UP APT WITH DR ROLLE ON 01/11/2020 DUE TO RECENT ED VISITS. 11/21/2019 [facility] - PATIENT HAS AN APT FOR ED FOLLOW WITH PCP MAURO MANSFIELD - Thursday. E.D. VISIT COUNT (12 MO.) 10 [facility]. TOTAL 10 NOTE: Visits indicate total known visits. ED/UCC VISIT TRACKING (12 MO.) 01/23/2020 19:10 [facility] [place] TYPE: Emergency COMPLAINT: - RECTAL BLEEDING 01/21/2020 02:[address] [facility] [place] TYPE: Emergency COMPLAINT: - DENTAL PAIN 01/02/2020 06:24 [facility] [place] TYPE: Emergency COMPLAINT: - FALL/KNEE AND ANKLE INJ DIAGNOSES: - Sprain of unspecified site of right knee, initial encounter - Sprain of unspecified ligament of right ankle, initial encoun - Exposure to other specified factors, initial encounter - Nicotine dependence, unspecified, uncomplicated - Pain in right knee 12/10/2019 20:15 [facility] [place] TYPE: Emergency COMPLAINT: - CHEST PAIN DIAGNOSES: - Unspecified asthma, uncomplicated - Nicotine dependence, unspecified, uncomplicated - Syncope and collapse - Other nursing home (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 11/30/2019 12:25 [facility] [place] TYPE: Emergency COMPLAINT: - RESTLESS LEGS DIAGNOSES: - Nicotine dependence, unspecified, uncomplicated - Restless legs syndrome - Encounter for issue of repeat prescription - 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 [place] TYPE: Emergency COMPLAINT: - FALL DIAGNOSES: - Hypotension, unspecified - Sprain of joints and ligaments of unspecified parts of neck, - Nicotine dependence, unspecified, uncomplicated - Unspecified asthma, uncomplicated - Cervicalgia - Exposure to other specified factors, initial encounter - Sprain of unspecified ligament of right ankle, initial encoun - Unspecified sprain of right shoulder joint, initial encounter 10/31/2019 10:[address] 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
[2020-01-23] MEDS ORDERED: FLAGYL500 MG PO (20:51)
[2020-01-23] MEDS ORDERED: CIPRO500 MG PO (20:51)
== END 2020-01-23 21:06 | disposition home or self-care (01) ==
LOC: ED 19:09
DX: K52.9 Noninfective gastroenteritis and colitis, unspecified (principal); J45.909 Unspecified asthma, uncomplicated; F17.200 Nicotine dependence, unspecified, uncomplicated; Z79.899 Other long term (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
CPT/HCPCS: 80053; 81001; 83690; 85025; 99284

== ENCOUNTER 2020-02-15 06:10 | Day surgery (SDC) | payer OTHER ==
[~2020-02-15] VITALS: Ht 149.9 cm; Wt 66.7 kg
--- NOTE | 2020-02-15 06:10 | NUR ---
PT ARRIVED VIA PERSONAL WHEELCHAIR PUSHED BY CAREGIVER. PT INSTRUCTED TO CHANGE INTO HOSPITAL GOWN. NOW RESTING IN LOCKED AND LOWERED BED WITH CAREGIVER AT THE BEDSIDE.
--- NOTE | 2020-02-15 07:54 | NUR ---
PT PROCEDURE CANCELED DT INCOMPLETE CARDIOLOGY WORKUP. PT REFUSED TO STAY FOR BARIUM SWOLLOW. IV DC'D BY CHARGE NURSE AND PT WHEELED OUT BY CAREGIVER IN PERSONAL WHEELCHAIR.
--- NOTE | 2020-02-15 08:26 | NUR ---
PT ALERT, ORIENTED AND SUPPORTED BY CG. PT INFORMED ME THIS IS HER FIRST AND WILL BE HER LAST. PREP APPARRENTLY WAS NOT SOMETHING SHE SAID SHE WOULD EVER DO AGAIN.SHE ALSO MENTIONED THAT SHE MAY NOT HAVE SCOPE DUE TO CARDIAC ISSUES. GAVE ENCOURAGEMENT, ALL OTHER QUESTIONS ASKED WERE ANSWERED. PT DECLINED PRAYER, WILL FOLLOW NEEDED
== END 2020-02-15 07:55 | disposition home or self-care (01) ==
LOC: OPS 06:10 → DS 06:10 → OPS 06:45
PROVIDERS: ATTEND Colon & Rectal Surgery
DX: I49.5 Sick sinus syndrome (principal); Z53.09 Procedure and treatment not carried out because of other contraindication; J45.909 Unspecified asthma, uncomplicated; G47.33 Obstructive sleep apnea (adult) (pediatric); F17.200 Nicotine dependence, unspecified, uncomplicated; Z79.899 Other long term (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
CPT/HCPCS: J2704; J7121

== ENCOUNTER 2020-02-15 21:06 | Emergency (ER) | payer OTHER ==
[~2020-02-15] VITALS: Ht 149.9 cm; Wt 72.6 kg
--- OUTSIDE RECORDS SUMMARY | ~2020-02-15 | XMS | Encounter Summary ---
Demographics + + + | Address | [address] | | | [place] [address] | + + + | Home Phone | | + + + | Preferred Language | Unknown | + + + | Marital Status | | + + + | Quaker Affiliation | 1013 | + + + | Race | White | + + + | Ethnic Group | Not or | + + + Author + + + | Author | [facility] | | | and [place] | + + + | Organization | [facility] | | | and [...] Team Providers + +------+ + | Care Platform Man Name | Role | Phone | + +------+ + | Kalyani Lawrence PA-C | PCP | | + +------+ + Reason for Visit + + + | Reason | Comments | + + + | New Patient | HTN | + + + Evaluate & Treat (Urgent) + +--------+ + + + + | Status | Reason | Specialty | Diagnoses / | Referred By | Referred To | | | | | Procedures | Contact | Contact | + +--------+ + + + + | Authorized | | Cardiology | Diagnoses | Melinda, | Leilani, | | | | | | Kalyani Schroeder, | Dariel Osborn MD | | | | | Hypotension, | [address] | [address] | | | | | unspecified | [address] | [address] | | | | | Procedures | [address] | [place] | | | | | Consult | TOM, | [place], [place] | | | | | | [place] [address] | [address] Phone: | | | | | | Phone: | [phone] | | | | | | [phone] | Fax: | | | | | | Fax: | [phone] | | | | | | [phone] | | + +--------+ + + + + Encounter Details +--------+---------+ + + + | Date | Type | Department | Care Team | Description | +--------+---------+ + + + | 12/25/ | Office | [facility] | Ewer, Nadeem N, | Hypertension, | | 2020 | Visit | CARDIOLOGY [place] | [address] | unspecified type | | | | [address] | [place] [address] | (Primary Dx) | | | | [place], [place] | [phone] | | | | | [address] | | | | | | [phone] | | | +--------+---------+ + + + Social History + +-------+ +--------+------+ | Tobacco Use | Types | Packs/Day | Years | Date | | | | | Used | | + +-------+ +--------+------+ | Light Tobacco Smoker | | | | | + +-------+ +--------+------+ + +---+---+---+ | Smokeless Tobacco: | | | | | Never Used | | | | + +---+---+---+ + + +---------+ + | Alcohol Use | Drinks/Week | oz/Week | Comments | + + +---------+ + | Not Currently | | | | + + +---------+ + + + + | Sex Assigned at | Date Recorded | | | | + + + | Not on file | | + + + documented as of this encounter Last Filed Vital Signs + + + + + | Vital Sign | Reading | Time Taken | Comments | + + + + + | Blood Pressure | 100/60 | 12/26/2019 8:32 AM | | | | | PDT | | + + + + + | Pulse | 65 | 12/26/2019 8:23 AM | | | | | PDT | | + + + + + | Temperature | 36.5 C (97.7 F) | 12/26/2019 8:23 AM | | | | | PDT | | + + + + + | Respiratory Rate | - | - | | + + + + + | Oxygen Saturation | 100% | 12/26/2019 8:23 AM | | | | | PDT | | + + + + + | Inhaled Oxygen | - | - | | | Concentration | | | | + + + + + | Weight | - | - | | + + + + + | Height | 149.9 cm (4' 11") | 12/26/2019 8:23 AM | | | | | PDT | | + + + + + | Body Mass Index | - | - | | + + + + + documented in this encounter Progress Notes Nadeem Ritter MD - 12/26/2019 8:30 AM PDTFormatting of this note might be different fro m the original. CARDIOVASCULAR NEW PATIENT : 1970 DATE OF SERVICE: 12/26/2019 PROVIDER: NADEEM RITTER MD PRIMARY CARE: Kalyani Lawrence PA-C REASON FOR CONSULTATION: Chief Complaint Patient presents with New Patient HTN HPI: A 49-year-old female, referred from Kalyani Lawrence in [place]. She has what she describes as a "lifetime" history of low blood pressure and syncopal episodes. She has frequent falls . She has had multiple concussions. She recently relocated to [place] from [place]. She wa s informed that she sometimes had high and low pulse rates. She was put on midodrine, but sh robert is not taking it because she cannot afford it. She smokes a half pack of cigarettes a day. She states she had a loop recorder implanted in 2018 but has not been interrogated recently . According to the record, she had a normal heart cath in 2010 at [facility]. No cardiac records from [place]. She denies alcohol or drug use. She denies chest pain or symptoms of heart fa ilure, claudication, or TIA-type symptoms. There apparently is a history of noncompliance. PH, FH, SH, and medications reviewed in the chart. PAST MEDICAL HISTORY: Past Medical History: Diagnosis Date Restless leg syndrome Past Surgical History: Procedure Laterality Date CARPAL TUNNEL RELEASE Left 2016 HYSTERECTOMY 1989 LOOP RECORDER PLACEMENT 2017 FAMILY HISTORY: History reviewed. No pertinent family history. SOCIAL HISTORY: Social History Socioeconomic History Marital status: Spouse name: Not on file Number of children: Not on file Years of education: Not on file Highest education level: Not on file Occupational History Not on file Social Needs Financial resource strain: Not on file Food insecurity Worry: Not on file Inability: Not on file Transportation needs Medical: Not on file Non-medical: Not on file Tobacco Use Smoking status: Light Tobacco Smoker Smokeless tobacco: Never Used Substance and Sexual Activity Alcohol use: Not Currently Drug use: Yes Types: Marijuana Sexual activity: Not on file Lifestyle Physical activity Days per week: Not on file Minutes per session: Not on file Stress: Not on file Relationships Social connections Talks on phone: Not on file Gets together: Not on file Attends jehovah's witness service: Not on file Active member of club or organization: Not on file Attends meetings of clubs or organizations: Not on file Relationship status: Not on file Intimate partner violence Fear of current or ex partner: Not on file Emotionally abused: Not on file Physically abused: Not on file Forced sexual activity: Not on file Other Topics Concern Not on file Social History Narrative Not on file CURRENT MEDICATIONS: Outpatient Encounter Medications as of 12/26/2019 Medication Sig Dispense Refill albuterol 0.63 mg/3 mL nebulizer solution Take 1 ampule by nebulization every 6 hours a s needed for Wheezing. albuterol 90 mcg/puff inhaler Inhale 2 puffs into the lungs every 6 hours as needed for Wheezing. pramipexole (MIRAPEX) 1 MG tablet Take 1 mg by mouth 3 times daily. No facility-administered encounter medications on file as of 12/26/2019. ALLERGIES: Patient has no known allergies. REVIEW OF SYSTEMS: Review of Systems Respiratory: Negative. Cardiovascular: Negative. Musculoskeletal: Positive for gait problem. Psychiatric/Behavioral: Negative. Constitutional: Positive for decreased activity. Neurological: Positive for dizziness, syncope, weakness, and falls. All other systems reviewed and negative. PHYSICAL EXAM: VITAL SIGNS: BP 100/60 | Pulse 65 | Temp 36.5 C (97.7 F) | Ht 1.499 m (4' 11") | Sp O2 100% GENERAL - Well developed, well-nourished, appears stated age, in no acute distress. HEENT - Normocephalic, atraumatic. No arcus senillis, no scleral icterus. NECK - Supple. No thyromegaly. CARDIOVASCULAR - No JVD, no carotid bruit. Carotid upstroke normal bilaterally. Regular rat e and rhythm. No rub. No murmur. No gallop. Normal S1 and S2. CHEST - Nontender. LUNGS - Clear to auscultation. No wheezing, no crackles, no rales, no rhonchi and normal re spiratory rate and rhythm. EXTREMITIES - No edema, clubbing or cyanosis. No deformities, no tenderness, and no discolo ration or ulceration. NEURO/PSYCH - Alert and oriented x3, mood and affect appropriate. No obvious focal motor or sensory deficits. Cranial nerves are grossly intact. MUSCULOSKELETAL - No muscle spasms, no muscle atrophy and no joint deformities. SKIN - No pallor, no jaundice, no cyanosis. ASSESSMENT: DATA: ECG ordered and interpreted today shows sinus rhythm, rate 51, mild J-point elevation consi stent with early repolarization, otherwise, unremarkable. IMPRESSION: 1. Long history of falls and syncope, question tachy-nash syndrome, question vasovagal syn cope, question POTS syndrome. 2. Tobacco abuse. PLAN: Recommend home blood pressure monitoring. We will arrange for interrogation of the loop rec order. We would like to see records from her previous machine ii trimmer in [place]. Increase flui d intake. Increase salt intake. Continue with noted meds, stressed compliance. Urged to stop smoking. We will see after the interrogation and we see her old records. Documented by January. Cardiac Medications: Continue as prescribed. Nadeem Ritter MD FACC, FACP, FASNC documented in this en counter Plan of Treatment + + +--------+ + + | Name | Type | Priori | Associated Diagnoses | Order Schedule | | | | ty | | | + + +--------+ + + | Device Interrogation | Cardiac | Routin | Hypertension, | Ordered: 12/26/2019 | | | Implant | e | unspecified type | | + + +--------+ + + documented as of this encounter Results ECG 12 lead (12/26/2019 8:49 AM PDT) + + + + + + | Component | Value | Ref Range | Performed | Pathologist | | | | | At | Signature | + + + + + + | VENTRICULAR | 51 | BPM | [facility] | | | RATE EKG | | | | | + + + + + + | ATRIAL RATE | 51 | BPM | [facility] | | + + + + + + | P-R | 158 | ms | [facility] | | | INTERVAL | | | | | + + + + + + | QRS | 90 | ms | [facility] | | | DURATION | | | | | + + + + + + | Q-T | 458 | ms | [facility] | | | INTERVAL | | | | | + + + + + + | Q-T | 422 | ms | [facility] | | | INTERVAL | | | | | | (CORRECTED) | | | | | + + + + + + | P WAVE AXIS | 65 | degrees | [facility] | | + + + + + + | QRS AXIS | 81 | degrees | [facility] | | + + + + + + | T AXIS | 79 | degrees | [facility] | | + + + + + + | INTERPRETAT | Sinus bradycardiaNormal | | [facility] | | | ION TEXT | variant early | | | | | | repolarizationNo | | | | | | previous ECGs | | | | | | availableConfirmed by | | | | | | SUSY RITTER MD ([id number]) on | | | | | | 01/02/2020 11:40:11 AM | | | | + + + + + + + + | Specimen | + + | | + + + + + | Narrative | Performed At | + + + | | | + + + + +---------+ + + | Performing | Address | City/State/Zipcode | Phone Number | | Organization | | | | + +---------+ + + | [facility] | | | | + +---------+ + + documented in this encounter Visit Diagnoses + + | Diagnosis | + + | Hypertension, unspecified type - Primary | + + documented in this encounter
--- OUTSIDE RECORDS SUMMARY | ~2020-02-15 | XMS | Encounter Summary ---
Demographics + + + | Address | [address] | | | [place] [address] | + + + | Home Phone [...] + + + | Author | [facility] | | | and [place] | + + + | Organization | [facility] | | | and [...] Team Providers + +------+ + | Care Skip Loader Name | Role | Phone | + [...] MED CTR SLEEP | MD Jose [address] | | | | | CENTER [address] | [address] [facility] | | | | | [place] | [place] [address] | | | | | [address] | [phone] | | | | | [phone] | | | +--------+ + + + [...]
--- OUTSIDE RECORDS SUMMARY | ~2020-02-15 | XMS | Encounter Summary ---
Demographics + + + | Address | [address] | | | [place] [address] | + + + | Home Phone | | + + + | Preferred Language | Unknown | + + + | Marital Status | | + + + | Muslim Affiliation | 1013 | + + + | Race | White | + + + | Ethnic Group | Not or | + + + Author + + + | Author | [facility] | | | and [place] | + + + | Organization | [facility] | | | [...] Team Providers + +------+ + | Care Bilingual Recruiter Name | Role | Phone | + [...] | | | | ZAKIYA FLEMING | [facility] [address] | | | | | [place] [address] | | | | | | [phone] | | | +--------+ + + + [...] XR CHEST 1 VIEW | Routin | 09/13/2019 | | Results for this | | | e | 12:00 AM | | procedure are in the | | | | PDT | | results section. | + +--------+ + + + documented in this encounter Results XR Chest 1 Vw (09/13/2019 12:00 AM PDT) + + | Specimen [...]
--- OUTSIDE RECORDS SUMMARY | ~2020-02-15 | XMS | Encounter Summary ---
Demographics + + + | Address | [address] | | | [place] [address] | + + + | Home Phone [...] Team Providers + +------+ + | Care Costume Maker Name | Role | Phone | [...] | CENTER [address] | [facility] [place], | | | | | [place] | [place] [address] | | | | | [address] | [phone] | | | | | [phone] | | | +--------+ + + + [...]
--- OUTSIDE RECORDS SUMMARY | ~2020-02-15 | XMS | Encounter Summary ---
Demographics + + + | Address | [address] | | | [place] [address] | + + + | Home Phone | | + + + | Preferred Language | Unknown | + + + | Marital Status | | + + + | Confucianism Affiliation | 1013 | + + + | Race | White | + + + | Ethnic Group | Not or | + + + Author + + + | Author | [facility] | | | and [place] | + + + | Organization | [facility] | | | [...] Team Providers + +------+ + | Care Surgery Tech Name | Role | Phone | + +------+ + PCP | Unavailable | + +------+ + Encounter Details +--------+ + + + + | Date | Type | Department | Care Team | Description | +--------+ + + + + | 02/08/ | [facility] | [facility] | Elías Mast | | | 2001 | Encounter | MED CTR LABORATORY | MD Jose [address] | | | | | [address] [place] | [address] [place] | | | | | [place] | [place] [address] | | | | | [address] | [phone] | | | | | [phone] | | | +--------+ + + + [...]
--- OUTSIDE RECORDS SUMMARY | ~2020-02-15 | XMS | Encounter Summary ---
Demographics + + + | Address | [address] | | | [place] [address] | + + + | Home Phone | | + + + | Preferred Language | Unknown | + + + | Marital Status | | + + + | Mandaeism Affiliation | 1013 | + + + | Race | White | + + + | Ethnic Group | Not or | + + + Author + + + | Author | [facility] | | | and [place] | + + + | Organization | [facility] | | | [...] Providers + +------+ + | Care Rn Chemical Dependency Name | Role | Phone | + [...] | [address] [place], [place] | [place] [address] | | | | | [address] | [phone] | | | | | [phone] | | | +--------+ + + + [...]
--- OUTSIDE RECORDS SUMMARY | ~2020-02-15 | XMS | Encounter Summary ---
Demographics + + + | Address | [address] | | | [place] [address] | + + + | Home Phone | | + + + | Preferred Language | Unknown | + + + | Marital Status | | + + + | Taoist Affiliation | 1013 | + + + | Race | White | + + + | Ethnic Group | Not or | + + + Author + + + | Author | [facility] | | | and [place] | + + + | Organization | [facility] | | [...] Providers + +------+ + | Care Call Or Contact Centre Manager Name | Role | Phone | + +------+ + | Kalyani Lawrence PA-C | PCP | | + +------+ + Encounter Details +--------+ + + + + | Date | Type | Department | Care Team | Description | +--------+ + + + + | 01/30/ | Abstract | [facility] [place] | Provider, | | | 2020 | | PULMONARY [address] | MD [address] | | | | | [place], | [place] | | | | | [place] [address] | [place] [address] | | | | | [phone] | | | +--------+ + + + [...]
--- OUTSIDE RECORDS SUMMARY | ~2020-02-15 | XMS | Encounter Summary ---
Demographics + + + | Address | [address] | | | [place] [address] | + + + | Home Phone | | + + + | Preferred Language | Unknown | + + + | Marital Status | | + + + | Latter Day Affiliation | 1013 | + + + | Race | White | + + + | Ethnic Group | Not or | + + + Author + + + | Author | [facility] | | | and [place] | + + + | Organization | [facility] | | | [...] Team Providers + +------+ + | Care News Internship Name | Role | Phone | + [...] | | | | ZAKIYA FLEMING | [facility] [address] | | | | | [place] [address] | | | | | | [phone] | | | +--------+ + + + [...]
--- OUTSIDE RECORDS SUMMARY | ~2020-02-15 | XMS | Encounter Summary ---
Demographics + + + | Address | [address] | | | [place] [address] | + + + | Home Phone | | + + + | Preferred Language | Unknown | + + + | Marital Status | | + + + | Mormon Affiliation | 1013 | + + + [...] Team Providers + +------+ + | Care Harpoon Engagement Planning Operator Name | Role | Phone | + +------+ + | Kalyani Lawrence PA-C | PCP | | + +------+ + Encounter Details +--------+ + + + + | Date | Type | Department | Care Team | Description | +--------+ + + + + | 12/25/ | Orders Only | [facility] | Kelley Kulkarni, | Hypertension, | | 2020 | | CARDIOLOGY [place] | RANJIT | unspecified type | | | | [address] | | | | | | [place] | | | | | | [address] | | | | | | [phone] | | | +--------+ + + + [...] | | | | SUSY DRIVER MD ([id number]) on | | | | | | [...]
--- OUTSIDE RECORDS SUMMARY | ~2020-02-15 | XMS | Encounter Summary ---
Demographics + + + | Address | [address] | | | [place] [address] | + + + | Home Phone | | + + + | Preferred Language | Unknown | + + + | Marital Status | | + + + | Gnosticism Affiliation | 1013 | + + + | Race | White | + + + | Ethnic Group | Not or | + + + Author + + + | Author | [facility] | | | and [place] | + + + | Organization | [facility] | | | and [...] Team Providers + +------+ + | Care Vp Cardiovascular Service Line Name | Role | Phone | + +------+ + PCP | Unavailable | + +------+ + Encounter Details +--------+ + + + + | Date | Type | Department | Care Team | Description | +--------+ + + + + | 12/01/ | [facility] | [facility] | Elías Mast | | | 2001 | Encounter | MED CTR LAB[facility]ATORY | MD Jose [address] | | | | | [address] [place] | [address] [place] | | | | | [place] | [place] [address] | | | | | [address] | [phone] | | | | | [phone] | | | +--------+ + + + [...]
--- OUTSIDE RECORDS SUMMARY | ~2020-02-15 | XMS | Clinical Summary ---
Demographics + + + | Address | [address] | | | [place] [address] | + + + | Home Phone | | + + + | Preferred Language | Unknown | + + + | Marital Status | | + + + | Episcopalian Affiliation [...] Team Providers + +------+ + | Care Checker Bakery [employer] Name | Role | Phone | + +------+ + | Kalyani Lawrence PA-C | PCP | | + +------+ + Allergies + + + + + + | Active Allergy | Reactions | Severity | Noted | Comments | | | | | Date | | + + + + + + | Omeprazole | Hives, Rash | Low | 01/31/20 | | | | | | 20 | | + + + + + + Medications + + + +---------+------+------+-------+ | Medication [...] | | + + + +---------+------+------+-------+ | diphenhydrAMINE | Take 25 mg by mouth | | 0 | | | Activ | | (BANOPHEN) 25 mg | Daily. | | | | | e | | tablet | | | | | | | + + + +---------+------+------+-------+ | lamoTRIgine | Take 100 mg by mouth | | 0 | | | Activ | | (LAMICTAL) 100 mg | Daily. | | | | | e | | tablet | | | | | | | + + + +---------+------+------+-------+ | midodrine | Take 5 mg by mouth 2 | | 0 | | | Activ | | (PROAMATINE) 5 mg | times daily. | | | | | e | | tablet | | | | | | | + + + +---------+------+------+-------+ | SUMAtriptan | TAKE 1 TABLET BY | | 0 | / | | Activ | | (IMITREX) 100 mg | MOUTH AT ONSET OF | | | 02/11 | | e | | tablet | SYMPTOMS MAY REPEAT | | | 20 | | | | | 1 TIME IN 2 HOURS. | | | | | | | | MAX OF 2 TABLETS PER | | | | | | | | DAY | | | | | | + + + +---------+------+------+-------+ | topiramate (QUDEXY | TAKE 1 CAPSULE BY | | 0 | /2 | | Activ | | XR) 25 mg ER | MOUTH ONCE DAILY | | | / | | e | | sprinkle capsule | THEN TITRATE TO 50MG | | | 20 | | | + + + +---------+------+------+-------+ | rOPINIRole | Take 5 mg by mouth | | 0 | | | Activ | | (REQUIP) 5 MG tablet | nightly. | | | | | e | + + + +---------+------+------+-------+ Active Problems Not on file Encounters +--------+ + + + + | Date | Type | Specialty | Care Team | Description | +--------+ + + + + | 01/30/ | Abstract | Pulmonology | Provider, | | | 2019 | | | MD Jesus | | +--------+ + + + + | 12/27/ | Imaging | Radiology | Provider, | | | 2019 | Exam | | MD Jesus | | +--------+ + + + + | 12/25/ | Office | Cardiology | Nadeem Ritter, | Hypertension, | | 2019 | Visit | | MD | unspecified type | | | | | | (Primary Dx) | +--------+ + + + + | 12/25/ | Orders Only | Cardiology | Kelley Kulkarni, | Hypertension, | | 2020 | | | MEMS DEVICE SCIENTIST | unspecified type | +--------+ + + + + from Last 3 Months Family History + +------+--------+ + | Relation | Name | Status | Comments | + +------+--------+ + | Father | | Alive | | + +------+--------+ + | Mother | | Alive | | + +------+--------+ + Social History + +-------+ +--------+------+ | [...] + + + + Plan of Treatment + + + + [...] | | | | SUSY RITTER MD ([id number]) on | | | | | | [...] | [employer] | MOD[employer] | [id number] | | [phone] | | Medica | | MEDICAID HMO | HEALTH | | 020-Pr | 1 | | id | | | MDCD | | esent | | | | | | [place] | | | | | | + +--------+ +--------+ +---------+--------+ | [employer] | MOD[employer] | [id number] | 12/27/19 | [phone] | | Medica | | MEDICAID HMO [...] | 1970 | [address] | [place] [address] | | | cara | | | 6 (Home) | | + +--------+ +--------+ + + | Anna Sandoval | Person | Self | [birth year] | [address] | | | al/Fam | | 1970 | [address] | [place] [address] | | | cara | | | 6 (Home) | | + +--------+ +--------+ + + Advance Directives + + + + + | Type | Date Recorded | Patient | Explanation | | | | Drop Board Man | | + + + + + | Power of | | | | | Balcony Worker | | | | + + + + + | Advance | | | | | Directive | | | | + + + + +
--- OUTSIDE RECORDS SUMMARY | ~2020-02-15 | XMS | Encounter Summary ---
Demographics + + + | Address | [address] | | | [place] [address] | + + + | Home Phone [...] Team Providers + +------+ + | Care Security Control Assessor Name | Role | Phone | + [...] S[facility] Corbett | | | | | [facility] | [place] | | | | | [address] | [phone] | | | | | [phone] | [phone] | | | | | | | [...] | | | 11/26/2010 12:44 P P [id number] | | | Read by KAREEM RIVERO MD 11/26/2010 12:44 P | | | | | + + + + + | Procedure Note | + + | Brock Morris Conversion - 01/15/2019 5:55 PM PDT PROCEDURE [...] | P | | P | | [id number]/ | | | | Read by | | KAREEM RIVERO MD 11/26/2010 12:44 P | | | | | + + documented in this encounter Visit Diagnoses + + | Diagnosis | + + | Chest pain, unspecified | + + documented in this encounter"
--- OUTSIDE RECORDS SUMMARY | 2020-02-15 21:10 | XMS ---
PreManage Notification: ALEXUS DAVID Security Maintenance Planner Events No recent Security Events currently on file CRITERIA MET - 6 ED Visits in 6 Months - [facility] - 2 Visits in 30 Days CARE PROVIDERS ASA ROLLE [facility] 11/21/2019-Current PHONE: [phone] Thee has no Care Guidelines for this patient. Care History Medical/Surgical 01/24/2020 [facility] - CHW CONTACTED PATIENT-PATIENT STATED SHE IS NOT ABLE TO SEE HER DENTIST UNTIL FEBRUARY. CHW ASKED IF IT WAS OK TO CONTACT [facility] TO SEE IF AN EARLIER APT CAN BE MADE-PATIENT APPROVED. - CHW CONTACTED [facility]-[place]OM- AN APT WAS MADE FOR SAME DAY @ 11: 30AM 01/24/20. PATIENT MADE AWARE OF THE APT AND WILL BE ABLE TO MAKE IT. - PATIENT HAS A FOLLOW UP APT WITH PCP OFFICE ON 01/25/20 DUE TO RECENT ED VISITS. - PATIENT HAS AN APT WITH DR BEGUM ON 01/26/2020. 01/23/2020 [facility] - PATIENT CONTACT NUMBER GOES DIRECTLY TO [employer]- CHW LEFT 2X MESSAGES- NO RETURN CALL. 01/03/2020 [facility] - PATIENT HAS A FOLLOW UP APT WITH DR ROLLE ON 01/11/2020 DUE TO RECENT ED VISITS. E.D. VISIT COUNT (12 MO.) 11 [place] TOTAL 11 NOTE: Visits indicate total known visits. ED/UCC VISIT TRACKING (12 MO.) 02/15/2020 21:06 [facility] [place] TYPE: Emergency COMPLAINT: - LT SIDE PAIN,HEADACHE 01/23/2020 19:10 [facility] [place] TYPE: Emergency COMPLAINT: - RECTAL BLEEDING DIAGNOSES: - Noninfective gastroenteritis and colitis, unspecified - Nicotine dependence, unspecified, uncomplicated - Unspecified asthma, uncomplicated - Unspecified abdominal pain - Other intermediate (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 01/21/2020 02:58 [facility] [place] TYPE: Emergency COMPLAINT: - DENTAL PAIN DIAGNOSES: - Unspecified asthma, uncomplicated - Nicotine dependence, unspecified, uncomplicated - Other intermediate (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 - Other specified disorders of teeth and supporting structures - Dental caries, unspecified 01/02/2020 06:24 [facility] [place] TYPE: Emergency [...] uncomplicated - Syncope and collapse - Other intermediate (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 11/30/2019 12:25 [facility] [place] TYPE: Emergency COMPLAINT: - RESTLESS LEGS DIAGNOSES: - Nicotine dependence, unspecified, uncomplicated - Restless legs syndrome - Encounter for issue of repeat prescription - Other intermediate (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 11/22/2019 22:[address] [facility] [place] TYPE: Emergency COMPLAINT: - ABD PAIN, BLOODY STOOL DIAGNOSES: - Noninfective gastroenteritis and colitis, unspecified - Unspecified abdominal pain - Nicotine dependence, unspecified, uncomplicated - Unspecified asthma, uncomplicated - Other terminal press 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 11/20/2019 10:[address] [facility] [place] TYPE: Emergency COMPLAINT: - LEFT HAND PAIN DIAGNOSES: - Syncope and collapse - Nicotine dependence, unspecified, uncomplicated - Contusion of left hand, initial encounter - Other intermediate (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 - Unspecified fall, initial [...] NECK PAIN,LEFT HIP PAIN DIAGNOSES: - Other terminal press 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 - Contusion of left hip, initial encounter - Nicotine dependence, unspecified, uncomplicated - Fall on same level, unspecified, initial encounter - Pain in left hip - Unspecified asthma, uncomplicated 09/13/2019 06:30 [facility] [place] TYPE: Emergency COMPLAINT: - CHEST PAIN DIAGNOSES: - Precordial pain - Unspecified asthma, uncomplicated - Other intermediate (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 - Nicotine dependence, unspecified, uncomplicated - Precordial pain INPATIENT VISIT TRACKING (12 MO.) No inpatient visits to display in this time frame [email or web address]
== END 2020-02-15 23:54 | disposition home or self-care (01) ==
LOC: ED 21:06
DX: S09.90XA Unspecified injury of head, initial encounter (principal); S16.1XXA Strain of muscle, fascia and tendon at neck level, initial encounter; S40.022A Contusion of left upper arm, initial encounter; R29.6 Repeated falls; I95.1 Orthostatic hypotension; W10.9XXA Fall (on) (from) unspecified stairs and steps, initial encounter; J45.909 Unspecified asthma, uncomplicated; F17.200 Nicotine dependence, unspecified, uncomplicated; Z79.899 Other long term (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
CPT/HCPCS: 70450; 72125; 73060; 73090; 80053; 85025; 99285-25

== ENCOUNTER 2020-04-12 18:16 | Emergency (ER) | payer OTHER ==
[~2020-04-12] VITALS: Ht 149.9 cm; Wt 68.0 kg
--- OUTSIDE RECORDS SUMMARY | 2020-04-12 18:18 | XMS ---
PreManage Notification: ALEXUS DAVID Security Settlement Processor Events No recent Security Events currently on file CRITERIA MET - 6 ED Visits in 6 Months CARE PROVIDERS ASA ROLLE [facility] 11/21/2019-Current PHONE: [phone] Thee has no Care Guidelines for this patient. Care History Medical/Surgical 02/16/2020 [facility] - PATIENT HAS A FOLLOW UP APT WITH MAURO MANSFIELD PCP ON 02/22/2020 DUE TO RECENT ED VISIT. 01/24/2020 [facility] - CHW CONTACTED PATIENT-PATIENT STATED SHE IS NOT ABLE TO SEE HER DENTIST UNTIL FEBRUARY. CHW ASKED IF IT WAS OK TO CONTACT [facility] TO SEE IF AN EARLIER APT CAN BE MADE-PATIENT APPROVED. - [facility]T WAS MADE FOR SAME DAY @ 11: 30AM 01/24/20. PATIENT MADE AWARE OF THE APT AND WILL BE ABLE TO MAKE IT. - PATIENT HAS A FOLLOW UP APT WITH PCP OFFICE ON 01/25/20 DUE TO RECENT ED VISITS. - PATIENT HAS AN APT WITH DR BEGUM ON 01/26/2020. 01/23/2020 [facility] - PATIENT CONTACT NUMBER GOES DIRECTLY TO [employer]- CHW LEFT 2X MESSAGES- NO RETURN CALL. E.D. VISIT COUNT (12 MO.) [address] [facility] TOTAL 12 NOTE: Visits indicate total known visits. ED/UCC VISIT TRACKING (12 MO.) 04/12/2020 18:17 [facility] [place] TYPE: Emergency COMPLAINT: - R SHOULDER PAIN 02/15/2020 21:06 [facility] [place] TYPE: Emergency COMPLAINT: - LT SIDE PAIN,HEADACHE DIAGNOSES: - Repeated falls - Orthostatic hypotension - Unspecified asthma, uncomplicated - Headache - Contusion of left upper arm, initial encounter - Unspecified injury of head, initial encounter - Other jail (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 - Fall (on) (from) unspecified stairs and steps, initial encounter - Nicotine dependence, unspecified, uncomplicated - Strain of muscle, fascia and tendon at neck level, initial encounter 01/23/2020 19:10 [facility] [place] TYPE: Emergency COMPLAINT: - RECTAL BLEEDING DIAGNOSES: - Noninfective gastroenteritis and colitis, unspecified - Nicotine dependence, unspecified, uncomplicated - Unspecified asthma, uncomplicated - Unspecified abdominal pain - Other jail (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 01/21/2020 02:58 [facility] [place] TYPE: Emergency COMPLAINT: - DENTAL PAIN DIAGNOSES: - Unspecified asthma, uncomplicated - Nicotine dependence, unspecified, uncomplicated - 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 - Other specified disorders of teeth and supporting structures - Dental caries, unspecified 01/02/2020 06:24 [facility] [place] TYPE: Emergency COMPLAINT: - FALL/KNEE AND ANKLE INJ DIAGNOSES: - Sprain of unspecified site of right knee, initial encounter - Sprain of unspecified ligament of right ankle, initial encounter - Exposure to other specified factors, initial encounter - Nicotine dependence, unspecified, uncomplicated - Pain in right knee 12/10/2019 20:15 [facility] [place] TYPE: Emergency COMPLAINT: - CHEST PAIN DIAGNOSES: - Unspecified asthma, uncomplicated - Nicotine dependence, unspecified, uncomplicated - Syncope and collapse - 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 [place] TYPE: Emergency COMPLAINT: - ABD PAIN, BLOODY STOOL DIAGNOSES: - Noninfective gastroenteritis and colitis, unspecified - Unspecified abdominal pain - Nicotine dependence, unspecified, uncomplicated - Unspecified asthma, uncomplicated - Other jail (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 11/20/2019 10:56 [facility] [place] TYPE: Emergency COMPLAINT: - LEFT HAND PAIN DIAGNOSES: - Syncope and collapse - Nicotine dependence, unspecified, uncomplicated - Contusion of left hand, initial encounter - Other jail (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 - Unspecified fall, initial encounter - Bradycardia, unspecified - Headache 11/07/2019 14:48 [facility] [place] TYPE: Emergency COMPLAINT: - FALL DIAGNOSES: - Hypotension, unspecified - Sprain of joints and ligaments of unspecified parts of neck, initial encounter - Nicotine dependence, unspecified, uncomplicated - Unspecified asthma, uncomplicated - Cervicalgia - Exposure to other specified factors, initial encounter - Sprain of unspecified ligament of right ankle, initial encounter - Unspecified sprain of right shoulder joint, initial encounter 10/31/2019 10:59 [facility] [place] TYPE: Emergency COMPLAINT: - FALL, NECK PAIN,LEFT HIP PAIN DIAGNOSES: - Other jail (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 - Contusion of left hip, initial encounter - Nicotine dependence, unspecified, uncomplicated - Fall on same level, unspecified, initial encounter - Pain in left hip - Unspecified asthma, uncomplicated 09/13/2019 06:30 [facility] [place] TYPE: Emergency COMPLAINT: - CHEST PAIN DIAGNOSES: - Precordial pain - Unspecified asthma, uncomplicated - 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
[2020-04-12] MEDS ORDERED: DICLOFENAC SOD100 G1 TOP (18:35)
== END 2020-04-12 20:11 | disposition home or self-care (01) ==
LOC: ED 18:16
DX: M25.511 Pain in right shoulder (principal); J45.909 Unspecified asthma, uncomplicated; F17.200 Nicotine dependence, unspecified, uncomplicated; Z79.899 Other long term (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
CPT/HCPCS: 73030; 99283-25

== ENCOUNTER 2020-05-18 17:07 | Emergency (ER) | payer OTHER ==
[~2020-05-18] VITALS: Ht 149.9 cm; Wt 63.5 kg
[~2020-05-18 17:07] MED LIST changes: +DICLOFENAC SOD100 G1 TOP
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
[2020-05-18] MEDS ORDERED: PRAMIPEXOLE DIHY1 MG PO (17:25)
== END 2020-05-18 18:58 | disposition home or self-care (01) ==
LOC: ED 17:07
DX: T24.202A Burn of second degree of unspecified site of left lower limb, except ankle and foot, initial encounter (principal); T31.0 Burns involving less than 10% of body surface; X10.2XXA Contact with fats and cooking oils, initial encounter; F17.200 Nicotine dependence, unspecified, uncomplicated; Z79.899 Other long term (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
CPT/HCPCS: 99283

== ENCOUNTER 2020-08-26 18:41 | Emergency (ER) | payer OTHER ==
[~2020-08-26] VITALS: Ht 149.9 cm; Wt 63.5 kg
[2020-08-26] MEDS ORDERED: PRAMIPEXOLE DIHY1 MG PO (19:52)
[2020-08-26] MEDS ORDERED: LIDODERM1 EACH TOP (21:55)
[2020-08-26] MEDS ORDERED: MAPAP500 MG PO (21:55)
[2020-08-26] MEDS ORDERED: VALIUM5 MG PO (21:55)
--- NOTE | 2020-08-27 15:40 | EKG ---
[facility] [address] [place], [place] [address] Signed Sinus bradycardia Otherwise normal ECG When compared with ECG of 07-FEB-2020 08:32, No significant change was found Confirmed by MARY FAITH DO ([id number]) on 08/27/2020 3:39:56 PM Electronically Signed By: MARY FAITH DO 08/27/20 1540 PATIENT NAME: ALEXUS DAVID Electrocardiogram DATE OF : 70 PHYSICIAN: MARY FAITH DO REPORT #: [id number] REPORT IS CONFIDENTIAL AND NOT TO BE RELEASED WITHOUT AUTHORIZATION
== END 2020-08-26 22:41 | disposition home or self-care (01) ==
LOC: ED 18:41
DX: S09.90XA Unspecified injury of head, initial encounter (principal); M62.830 Muscle spasm of back; M62.838 Other muscle spasm; J45.909 Unspecified asthma, uncomplicated; F17.200 Nicotine dependence, unspecified, uncomplicated; Z79.899 Other long term (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; W19.XXXA Unspecified fall, initial encounter
CPT/HCPCS: 70450; 71045; 72125; 72128; 84703; 93005; 93010; 99284-25; A9270

== ENCOUNTER 2020-11-08 23:19 | Emergency (ER) | payer OTHER ==
[~2020-11-08] VITALS: Ht 149.9 cm; Wt 63.5 kg
[~2020-11-08 23:19] MED LIST changes: +LIDODERM1 EACH TOP; +MAPAP500 MG PO; +VALIUM5 MG PO
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
--- NOTE | 2020-11-09 02:33 | EKG ---
[facility] [address] [place], [place] [address] Signed Normal sinus rhythm Normal ECG When compared with ECG of 26-AUG-2020 21:12, T wave inversion now evident in Anterior leads Confirmed by BRANDON ALEXNADER MD ([id number]) on 11/09/2020 2:33:43 AM Electronically Signed By: BRANDON ALEXANDER MD 11/09/20 0233 PATIENT NAME: JOANNALEXUS Electrocardiogram DATE OF : 70 PHYSICIAN: BRANDON ALEXANDER MD REPORT #: [id number] REPORT IS CONFIDENTIAL AND NOT TO BE RELEASED WITHOUT AUTHORIZATION
== END 2020-11-09 01:57 | disposition home or self-care (01) ==
LOC: ED 23:19
DX: S40.011A Contusion of right shoulder, initial encounter (principal); S20.212A Contusion of left front wall of thorax, initial encounter; S00.93XA Contusion of unspecified part of head, initial encounter; W19.XXXA Unspecified fall, initial encounter; J45.909 Unspecified asthma, uncomplicated; F17.200 Nicotine dependence, unspecified, uncomplicated; Z79.899 Other long term (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
CPT/HCPCS: 70450; 71045; 73030; 80053; 83735; 84484; 85025; 93005; 93010; 99285-25

== ENCOUNTER 2021-01-06 00:11 | Emergency (ER) | payer OTHER ==
[~2021-01-06] VITALS: Ht 149.9 cm; Wt 63.5 kg
[2021-01-06] MEDS ORDERED: CYCLOBENZAPRINE10 MG PO (02:33)
[2021-01-07] MEDS ORDERED: IBUPROFEN600 MG PO (11:58)
== END 2021-01-06 02:46 | disposition home or self-care (01) ==
LOC: ED 00:11
DX: S19.9XXA Unspecified injury of neck, initial encounter (principal); V89.9XXA Person injured in unspecified vehicle accident, initial encounter; J45.909 Unspecified asthma, uncomplicated; F17.200 Nicotine dependence, unspecified, uncomplicated; Z79.899 Other long term (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
CPT/HCPCS: 72125; 99284-25

== ENCOUNTER 2021-01-06 15:00 | Emergency (ER) | payer OTHER ==
[~2021-01-06] VITALS: Ht 149.9 cm; Wt 63.5 kg
[~2021-01-06 15:00] MED LIST changes: +CYCLOBENZAPRINE10 MG PO
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
[2021-01-07] MEDS ORDERED: IBUPROFEN600 MG PO (11:58)
== END 2021-01-06 17:43 | disposition home or self-care (01) ==
LOC: ED 15:00
DX: S63.501A Unspecified sprain of right wrist, initial encounter (principal); S80.02XA Contusion of left knee, initial encounter; S00.81XA Abrasion of other part of head, initial encounter; V89.9XXA Person injured in unspecified vehicle accident, initial encounter; J45.909 Unspecified asthma, uncomplicated; I48.91 Unspecified atrial fibrillation; F17.200 Nicotine dependence, unspecified, uncomplicated; Z79.899 Other long term (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; Z23 Encounter for immunization
CPT/HCPCS: 70450; 70486; 72125; 73110; 73560; 90471; 90715; 96374; 96375; 99284-25; J1170; J2405

== ENCOUNTER 2021-01-07 11:10 | Emergency (ER) | payer OTHER ==
[~2021-01-07] VITALS: Ht 149.9 cm; Wt 63.5 kg
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
[2021-01-07] MEDS ORDERED: IBUPROFEN600 MG PO (11:58)
== END 2021-01-07 12:08 | disposition home or self-care (01) ==
LOC: ED 11:10
DX: S16.1XXA Strain of muscle, fascia and tendon at neck level, initial encounter (principal); S30.1XXA Contusion of abdominal wall, initial encounter; V29.9XXA Motorcycle rider (driver) (passenger) injured in unspecified traffic accident, initial encounter; J45.909 Unspecified asthma, uncomplicated; I48.91 Unspecified atrial fibrillation; F17.200 Nicotine dependence, unspecified, uncomplicated; Z79.899 Other long term (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
CPT/HCPCS: 99283; A9270

== ENCOUNTER 2021-01-17 22:02 | Emergency (ER) | payer OTHER ==
[~2021-01-17] VITALS: Ht 149.9 cm; Wt 63.5 kg
[~2021-01-17 22:02] MED LIST changes: +IBUPROFEN600 MG PO
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
[2021-01-17] MEDS ORDERED: SULFAMETHOXAZO1 EAC1 PO (22:15)
[2021-01-17] MEDS ORDERED: DOXYCYCLINE HY100 MG PO (22:33)
== END 2021-01-17 22:43 | disposition home or self-care (01) ==
LOC: ED 22:02
DX: N61.1 Abscess of the breast and nipple (principal); J45.909 Unspecified asthma, uncomplicated; I48.91 Unspecified atrial fibrillation; F17.200 Nicotine dependence, unspecified, uncomplicated; Z79.899 Other long term (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
CPT/HCPCS: 10060; 99283-25

== ENCOUNTER 2021-01-25 12:54 | Emergency (ER) | payer OTHER ==
[~2021-01-25] VITALS: Ht 149.9 cm; Wt 70.3 kg
[~2021-01-25 12:54] MED LIST changes: +DOXYCYCLINE HY100 MG PO; +SULFAMETHOXAZO1 EAC1 PO
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
[2021-01-25] MEDS ORDERED: BETAMETHASONE D15 G2 TOP (13:05)
[2021-01-25] MEDS ORDERED: ONDANSETRON ODT4 MG PO (15:23)
[2021-01-25] MEDS ORDERED: DICYCLOMINE HCL10 MG PO (15:23)
--- NOTE | 2021-01-26 19:02 | EKG ---
[facility] [address] [place] [address] Signed Normal sinus rhythm Normal ECG When compared with ECG of 08-NOV-2020 23:28, T wave inversion no longer evident in Anterior leads Confirmed by KEVIN FERREIRA MD ([id number] on 01/26/2021 7:02:31 PM Electronically Signed By: KEVIN FERREIRA MD 01/26/21 190 PATIENT NAME: JOANNALEXUS Electrocardiogram DATE OF : 70 PHYSICIAN: KEVIN FERREIRA MD REPORT #: [id number] REPORT IS CONFIDENTIAL AND NOT TO BE RELEASED WITHOUT AUTHORIZATION
== END 2021-01-25 15:45 | disposition home or self-care (01) ==
LOC: ED 12:54
DX: K52.9 Noninfective gastroenteritis and colitis, unspecified (principal); E86.0 Dehydration; J45.909 Unspecified asthma, uncomplicated; I48.91 Unspecified atrial fibrillation; F17.200 Nicotine dependence, unspecified, uncomplicated; Z79.899 Other long term (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; Z20.822 Contact with and (suspected) exposure to COVID-19
CPT/HCPCS: 71045; 80053; 81001; 83735; 84484; 85025; 93005; 93010; 96374; 99284-25; C9803; J2405; J7030; U0003

== ENCOUNTER 2021-02-26 22:01 | Emergency (ER) | payer OTHER ==
[~2021-02-26] VITALS: Ht 149.9 cm; Wt 70.3 kg
[~2021-02-26 22:01] MED LIST changes: +BETAMETHASONE D15 G2 TOP; +DICYCLOMINE HCL10 MG PO; +ONDANSETRON ODT4 MG PO
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
--- NOTE | 2021-03-01 21:22 | EKG ---
[facility] [address] [place] [address] Signed Sinus tachycardia Nonspecific T wave abnormality Abnormal ECG When compared with ECG of 25-JAN-2021 14:15, Nonspecific T wave abnormality now evident in Anterior leads Confirmed by MARY FAITH DO ([id number]) on 03/01/2021 9:22:34 PM Electronically Signed By: MARY FAITH DO 03/01/212121 PATIENT NAME: JOANNALEXUS Electrocardiogram DATE OF : 70 PHYSICIAN: MARY FAITH DO REPORT #: [id number] REPORT IS CONFIDENTIAL AND NOT TO BE RELEASED WITHOUT AUTHORIZATION
--- NOTE | 2021-03-01 21:26 | EKG ---
[facility] [address] [facility] [place], [place] [address] Signed Normal sinus rhythm ST \T\ T wave abnormality, consider anterior ischemia Abnormal ECG When compared with ECG of 26-FEB-2021 22:08, (Unconfirmed) T wave inversion now evident in Anterior leads Confirmed by MARY FAITH DO ([id number]) on 03/01/2021 9:26:16 PM Electronically Signed By: MARY FAITH DO 03/01/21 2126 PATIENT NAME: ALEXUS DAVID Electrocardiogram DATE OF : 70 PHYSICIAN: MARY FAITH DO REPORT #: [id number] REPORT IS CONFIDENTIAL AND NOT TO BE RELEASED WITHOUT AUTHORIZATION
== END 2021-02-27 16:25 | disposition home or self-care (01) ==
LOC: ED 22:01
PROC: 0T2BX0Z Change Drainage Device in Bladder, External Approach (ICD-10-PCS; principal; 2021-02-26)
DX: F32.A Depression, unspecified (principal); F10.129 Alcohol abuse with intoxication, unspecified; T50.901A Poisoning by unspecified drugs, medicaments and biological substances, accidental (unintentional), initial encounter; E87.6 Hypokalemia; J45.909 Unspecified asthma, uncomplicated; I48.91 Unspecified atrial fibrillation; F17.200 Nicotine dependence, unspecified, uncomplicated; Z20.822 Contact with and (suspected) exposure to COVID-19; Y90.5 Blood alcohol level of 100-119 mg/100 ml
CPT/HCPCS: 51701; 80053; 81001; 84443; 85025; 93005; 93010; 99284-25; C9803; G0480; J2060; J3486; J7030; U0003

== ENCOUNTER 2021-03-20 11:12 | Emergency (ER) | payer OTHER ==
[~2021-03-20] VITALS: Ht 149.9 cm; Wt 68.0 kg
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
== END 2021-03-20 13:46 | disposition home or self-care (01) ==
LOC: ED 11:12
DX: S93.402A Sprain of unspecified ligament of left ankle, initial encounter (principal); X50.1XXA Overexertion from prolonged static or awkward postures, initial encounter; J45.909 Unspecified asthma, uncomplicated; I48.91 Unspecified atrial fibrillation; F17.200 Nicotine dependence, unspecified, uncomplicated; Z79.899 Other long term (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
CPT/HCPCS: 73610; 99283-25

== ENCOUNTER 2021-06-22 19:43 | Emergency (ER) | payer OTHER ==
[~2021-06-22] VITALS: Ht 149.9 cm; Wt 68.0 kg
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
[2021-06-22] MEDS ORDERED: ONDANSETRON ODT8 MG PO (22:10)
[2021-06-22] MEDS ORDERED: CYCLOBENZAPRINE10 MG PO (22:10)
[2021-06-23] MEDS ORDERED: ONDANSETRON ODT4 MG SL (10:15)
== END 2021-06-22 22:31 | disposition home or self-care (01) ==
LOC: ED 19:43
DX: U07.1 COVID-19 (principal); J45.909 Unspecified asthma, uncomplicated; G25.81 Restless legs syndrome; I48.91 Unspecified atrial fibrillation; F17.200 Nicotine dependence, unspecified, uncomplicated; Z79.899 Other long term (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
CPT/HCPCS: 96372; 99284; A9270; C9803; J1885; U0003

== ENCOUNTER 2021-06-23 09:35 | Emergency (ER) | payer OTHER ==
[~2021-06-23] VITALS: Ht 149.9 cm; Wt 68.0 kg
[~2021-06-23 09:35] MED LIST changes: +ONDANSETRON ODT8 MG PO
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
[2021-06-23] MEDS ORDERED: ONDANSETRON ODT4 MG SL (10:15)
--- NOTE | 2021-06-25 06:57 | EKG ---
[facility] [address] [facility] [place], [place] [address] Signed Normal sinus rhythm Normal ECG No previous ECGs available Confirmed by BRANDON ALEXANDER MD ([id number]) on 06/25/2021 6:57:13 AM Electronically Signed By: BRANDON ALEXANDER MD 06/25/21 0657 PATIENT NAME: ALEXUS DAVID Electrocardiogram DATE OF : 70 PHYSICIAN: BRANDON ALEXANDER MD REPORT #: [id number] REPORT IS CONFIDENTIAL AND NOT TO BE RELEASED WITHOUT AUTHORIZATION
== END 2021-06-23 10:55 | disposition home or self-care (01) ==
LOC: ED 09:35
DX: U07.1 COVID-19 (principal); J20.8 Acute bronchitis due to other specified organisms; J45.909 Unspecified asthma, uncomplicated; G25.81 Restless legs syndrome; I48.91 Unspecified atrial fibrillation; F17.200 Nicotine dependence, unspecified, uncomplicated; Z79.899 Other long term (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
CPT/HCPCS: 93005; 93010; 96372; 99285-25; A9270; J1885

== ENCOUNTER 2021-06-24 06:34 | Emergency (ER) | payer OTHER ==
[~2021-06-24] VITALS: Ht 149.9 cm; Wt 68.0 kg
[~2021-06-24 06:34] MED LIST changes: +ONDANSETRON ODT4 MG SL
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
--- NOTE | 2021-06-25 06:57 | EKG ---
[facility] [address] [facility] [facility] [place], [place] [address] Signed Normal sinus rhythm Normal ECG When compared with ECG of 23-JUN-2021 09:38, (Unconfirmed) No significant change was found Confirmed by BRANDON ALEXANDER MD ([id number]) on 06/25/2021 6:57:34 AM Electronically Signed By: BRANDON ALEXANDER MD 06/25/21 0657 PATIENT NAME: JOANNALEXUS Electrocardiogram DATE OF : 70 PHYSICIAN: BRANDON ALEXANDER MD REPORT #: [id number] REPORT IS CONFIDENTIAL AND NOT TO BE RELEASED WITHOUT AUTHORIZATION
== END 2021-06-24 07:52 | disposition home or self-care (01) ==
LOC: ED 06:34
DX: U07.1 COVID-19 (principal); J45.909 Unspecified asthma, uncomplicated; G25.81 Restless legs syndrome; I48.91 Unspecified atrial fibrillation; F17.200 Nicotine dependence, unspecified, uncomplicated; Z79.899 Other long term (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
CPT/HCPCS: 93005; 93010; 96372; 99285-25; J1885

== ENCOUNTER 2021-07-31 21:57 | Emergency (ER) | payer OTHER ==
[~2021-07-31] VITALS: Ht 149.9 cm; Wt 68.0 kg
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
== END 2021-07-31 22:45 | disposition home or self-care (01) ==
LOC: ED 21:57
DX: S80.02XA Contusion of left knee, initial encounter (principal); J45.909 Unspecified asthma, uncomplicated; G25.81 Restless legs syndrome; I48.91 Unspecified atrial fibrillation; F17.200 Nicotine dependence, unspecified, uncomplicated; Z79.899 Other long term (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; W01.0XXA Fall on same level from slipping, tripping and stumbling without subsequent striking against object, initial encounter
CPT/HCPCS: 73560; 99283-25

== ENCOUNTER 2021-08-19 16:53 | Emergency (ER) | payer OTHER ==
[~2021-08-19] VITALS: Ht 149.9 cm; Wt 67.6 kg
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
[2021-08-19] MEDS ORDERED: ULTRAM50 MG PO (21:29)
== END 2021-08-19 21:50 | disposition home or self-care (01) ==
LOC: ED 16:53
DX: S83.92XA Sprain of unspecified site of left knee, initial encounter (principal); J45.909 Unspecified asthma, uncomplicated; G25.81 Restless legs syndrome; I48.91 Unspecified atrial fibrillation; F17.200 Nicotine dependence, unspecified, uncomplicated; Z79.899 Other long term (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; X58.XXXA Exposure to other specified factors, initial encounter
CPT/HCPCS: 73700; 96372; 99283-25; J1885

== ENCOUNTER 2021-10-08 19:19 | Emergency (ER) | payer OTHER ==
[~2021-10-08] VITALS: Ht 149.9 cm; Wt 69.0 kg
[~2021-10-08 19:19] MED LIST changes: +ULTRAM50 MG PO
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
== END 2021-10-08 22:33 | disposition home or self-care (01) ==
LOC: ED 19:19
DX: M25.562 Pain in left knee (principal); I48.91 Unspecified atrial fibrillation; J45.909 Unspecified asthma, uncomplicated; G25.81 Restless legs syndrome; F17.200 Nicotine dependence, unspecified, uncomplicated; Z79.899 Other long term (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
CPT/HCPCS: 73560; 73590; 99283-25; A9270

== ENCOUNTER 2022-02-16 15:47 | Emergency (ER) | payer OTHER ==
[~2022-02-16] VITALS: Ht 149.9 cm; Wt 69.0 kg
--- OUTSIDE RECORDS SUMMARY | 2022-02-16 15:50 | XMS ---
PreManage Notification: ALEXUS DAVID Security Flange Machine Operator Events No recent Security Events currently on file CRITERIA MET - [facility] CARE PROVIDERS MAURO MANSFIELD Physician Marine Geologist 04/16/2020-Current PHONE: [phone] ASA ROLLE Family Medicine 11/21/2019-Current PHONE: Unknown Amy Orellana-Elda Nurse Practitioner: Family Current PHONE: [phone] Thee has no Care Guidelines for this patient. Care History Medical/Surgical 01/08/2021 [facility] - PATIENT HAS AN ER FOLLOW UP APT FOR FOLLOW UP WITH PCP MAURO MANSFIELD . 11/12/2020 [facility] - CHW TRIED TO CONTACT PATIENT AT NUMBER [phone]- NUMBER IS NO LONGER IN SERVICE - [...] ED VISIT. Hannah [facility] (12 MO.) [facility] NOTE: Visits indicate total known visits. 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 - Unspecified asthma, uncomplicated - Restless legs syndrome - Pain in left knee - Unspecified atrial fibrillation - Nicotine dependence, unspecified, uncomplicated 08/19/2021 16:54 [facility] [place] TYPE: Emergency COMPLAINT: - LT KNEE PAIN/ NON INJ DIAGNOSES: - Nicotine dependence, unspecified, uncomplicated - Unspecified asthma, uncomplicated - Restless legs syndrome - Pain in left knee - Unspecified atrial fibrillation - Exposure to other specified factors, initial encounter - Sprain of unspecified site of left knee, initial encounter - Other custodial (current) drug therapy 07/31/2021 21:57 [facility] [place] TYPE: Emergency COMPLAINT: - LEFT KNEE PAIN/ FALL DIAGNOSES: - Restless legs syndrome - Pain in left knee - Nicotine dependence, unspecified, uncomplicated - Unspecified asthma, uncomplicated - Contusion of left knee, initial encounter - Unspecified atrial fibrillation - Fall on same level from slipping, tripping and stumbling without subsequent striking against object, initial encounter - Other custodial (current) drug therapy 06/24/2021 06:34 [facility] [place] TYPE: Emergency COMPLAINT: - FEVER DIAGNOSES: - Other nuclear control 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 - COVID-19 - Unspecified atrial fibrillation - Nicotine dependence, unspecified, uncomplicated - Restless legs syndrome - Fever, unspecified - Unspecified asthma, uncomplicated 06/23/2021 09:36 [facility] [place] [place] TYPE: Emergency COMPLAINT: - FLU SYMPTOMS DIAGNOSES: - Nicotine dependence, unspecified, uncomplicated - Restless legs syndrome - Unspecified asthma, uncomplicated - Acute bronchitis due to other specified organisms - Other custodial (current) drug therapy - Acute bronchitis, unspecified - Chest pain, unspecified - COVID-19 - Unspecified atrial fibrillation 06/22/2021 19:44 [facility] [place] TYPE: Emergency COMPLAINT: - FLU SYMPTOMS DIAGNOSES: - Headache, unspecified - Other custodial (current) drug therapy - COVID-19 - Restless legs syndrome - Unspecified atrial fibrillation - Nicotine dependence, unspecified, uncomplicated - Unspecified asthma, uncomplicated 03/20/2021 11:13 [facility] [place] TYPE: Emergency COMPLAINT: - FALL, L ANKLE/KNEE INJURY DIAGNOSES: - Other nuclear control 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 - Unspecified asthma, uncomplicated - Unspecified atrial fibrillation - Nicotine dependence, unspecified, uncomplicated - Sprain of unspecified ligament of left ankle, initial encounter - Overexertion from prolonged static or awkward postures, initial encounter 02/26/2021 22:02 [facility] [place] TYPE: Emergency COMPLAINT: - POSS OVERDOSE DIAGNOSES: - Unspecified atrial fibrillation - Depression, unspecified - Contact with and (suspected) exposure to COVID-19 - Hypokalemia - Blood alcohol level of 100-119 mg/100 ml - DEPRESSION, UNSPECIFIED - Poisoning by unspecified drugs, medicaments and biological substances, accidental (unintentional), initial encounter - Nicotine dependence, unspecified, uncomplicated - Alcohol abuse with intoxication, unspecified - Unspecified asthma, uncomplicated INPATIENT VISIT TRACKING (12 MO.) No inpatient visits to display in this time frame [email or web address]
== END 2022-02-17 15:05 ==
LOC: ED 15:47
DX: R45.851 Suicidal ideations (principal); J45.909 Unspecified asthma, uncomplicated; I48.91 Unspecified atrial fibrillation; F17.200 Nicotine dependence, unspecified, uncomplicated; Z79.899 Other long term (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
CPT/HCPCS: 36415; 80053; 81001; 84443; 84703; 85025; 99285; A9270; G0480

== ENCOUNTER 2022-03-03 00:13 | Emergency (ER) | payer OTHER ==
[~2022-03-03] VITALS: Ht 149.9 cm; Wt 65.0 kg
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
== END 2022-03-03 02:10 | disposition home or self-care (01) ==
LOC: ED 00:13
DX: S00.83XA Contusion of other part of head, initial encounter (principal); Y04.8XXA Assault by other bodily force, initial encounter; J45.909 Unspecified asthma, uncomplicated; I48.91 Unspecified atrial fibrillation; F17.200 Nicotine dependence, unspecified, uncomplicated; Z79.899 Other long term (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
CPT/HCPCS: 70450; 70486; 72125; 99284-25

== ENCOUNTER 2022-05-13 15:51 | Emergency (ER) | payer OTHER ==
[~2022-05-13] VITALS: Ht 149.9 cm; Wt 57.7 kg
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
[2022-05-13] MEDS ORDERED: CEPHALEXIN500 M1 PO (16:28)
== END 2022-05-13 16:48 | disposition home or self-care (01) ==
LOC: ED 15:51
DX: R23.8 Other skin changes (principal); J45.909 Unspecified asthma, uncomplicated; I48.91 Unspecified atrial fibrillation; F17.200 Nicotine dependence, unspecified, uncomplicated; Z79.899 Other long term (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
CPT/HCPCS: 87070; 87075; 87205; 99282; A9270

== ENCOUNTER 2022-06-29 14:50 | Emergency (ER) | payer OTHER ==
[~2022-06-29] VITALS: Ht 149.9 cm; Wt 44.6 kg
--- NOTE | ~2022-06-29 | EKG ---
[facility] [address] [place], [place] [address] Draft EK completed, results pending confirmation PATIENT NAME: ADONAY DAVIDA Electrocardiogram DATE OF : 70 PHYSICIAN: PRELIMINARY REPORT #: [id number] REPORT IS CONFIDENTIAL AND NOT TO BE RELEASED WITHOUT AUTHORIZATION
[~2022-06-29 14:50] MED LIST changes: +CEPHALEXIN500 M1 PO
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
[2022-06-29] MEDS ORDERED: DEXTROAMP-AMPHE20 MG PO (15:06)
[2022-06-29] MEDS ORDERED: DIVALPROEX SOD500 M1 PO (15:06)
== END 2022-06-29 16:29 | disposition home or self-care (01) ==
LOC: ED 14:50
DX: J20.9 Acute bronchitis, unspecified (principal); J45.909 Unspecified asthma, uncomplicated; I48.91 Unspecified atrial fibrillation; F17.200 Nicotine dependence, unspecified, uncomplicated; Z79.899 Other long term (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
CPT/HCPCS: 36415; 71045; 80053; 84484; 85025; 93005; 93010; 96374; 99285-25; A9270; J1885

== ENCOUNTER 2023-04-06 14:57 | Emergency (ER) | payer OTHER ==
[~2023-04-06] VITALS: Ht 149.9 cm; Wt 51.4 kg
--- OUTSIDE RECORDS SUMMARY | ~2023-04-06 | XMS | Continuity of Care Document ---
Demographics + + + | Address | [address] | | | [place] [address] | + + + | Preferred Language | Unknown | + + + | Marital Status | unknown | + + + | Rastafarian Affiliation | Unknown | + + + | Race | White | + + + | Ethnic Group | Not or | + + + Author + + + | Author | [facility] | + + + | Organization | [facility] | + + + | Address | [address] | | | [place], [place] [address] | + + + | Phone | | + + + Care Team Providers + + + + | Care Cardiac Surgeon Name | Role | Phone | + + + + Unavailable | Unavailable | + + + + Allergies No information. Encounters No information. Functional Status No information. Immunizations No information. Medications + + + + | date | description | facility | + + + + | 2023-02-25 00:00 | Albuterol Sulfate HFA 108 | [facility] | | | (90 Base) MCG/ACT | | | | Inhalation Aerosol Solution | | | | | | + + + + | 2023-02-25 00:00 | [id number] 60 ACTUAT | [facility] | | | albuterol 0.09 MG/ACTUAT | | | | Metered Dose Inhaler | | + + + + Problems No information. Procedures + + + + | date | description | facility | + + + + | 2023-02-25 00:00 | SARS-CV-2 Coronavirus By | [facility] | | | Antigen Test STATE SUPPLIED | | | | | | + + + + Results/Labs +--------+--------+ +---------+--------+---------+ | test | date | facility | value | unit | notes | +--------+--------+ +---------+--------+---------+ + + | [facility] COVID-19 Rapid Antigen test | + + + + + + + + + | [facility] | 2023-02-25 | FERNANDO | Negative | (missing) | (missing) | | [facility] | 13:18 | MEDICAL | | | | | COVID-19 | | [facility] | | | | | Rapid Test | | | | | | + + + + + + + Social History + + + + | date | description | facility | + + + + | 2023-02-26 00:00 | Unknown if ever smoked | [facility] | | | | | + + + + Vital Signs + + +---------+---------+ | date | measurement | value | units | + + +---------+---------+ | 2023-02-25 00:00 | heart_rate | 89 | /min | + + +---------+---------+ | 2023-02-25 00:00 | o2_saturation | 99 | % | + + +---------+---------+ | 2023-02-25 00:00 | respiration_rate | 16 | /min | + + +---------+---------+ | 2023-02-25 00:00 | temperature_metric | 36.44 | C | | | | | | + + +---------+---------+ | 2023-02-25 00:00 | | 97.6 | F | | | temperature_standar | | | | | d | | | + + +---------+---------+"
[~2023-04-06 14:57] MED LIST changes: +DEXTROAMP-AMPHE20 MG PO; +DIVALPROEX SOD500 M1 PO
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
[2023-04-06 15:47] LABS: INFLUENZA B NAA NEGATIVE (NEGATIVE); RESPIRATORY SYNCYTIAL VIR NAA NEGATIVE (NEGATIVE)
[2023-04-06 16:32] VITALS: BP 106/63
== END 2023-04-06 16:32 | disposition home or self-care (01) ==
LOC: ED 14:57
PROVIDERS: Emergency Medicine
DX: J06.9 Acute upper respiratory infection, unspecified (principal); Z11.52 Encounter for screening for COVID-19
CPT/HCPCS: 87502; 99283; 99406; C9803; U0002

== ENCOUNTER 2023-05-07 06:05 | Emergency (ER) | payer OTHER ==
[~2023-05-07] VITALS: Ht 149.9 cm; Wt 51.4 kg
--- OUTSIDE RECORDS SUMMARY | ~2023-05-07 | XMS | Continuity of Care Document ---
Demographics + + + | Address | NO PERMANENT ADDRESS | | | [place] [address] | + + + | Preferred Language | Unknown | + + + | Marital Status | unknown | + + + | Jain Affiliation | Unknown | + + + | Race | White | + + + | Ethnic Group | Not or | + + + Author + + + | Author | [facility] | + + + | Organization | [facility] | + + + | Address | [address] | | | [place], [place] [address] | + + + | Phone | | + + + Care Team Providers + + + + | Care Hydroelectric Production Manager Name | Role | Phone | + + + + Unavailable | Unavailable | + + + + Allergies No information. Encounters No information. Functional Status No information. Immunizations No information. Medications + + + + | date | description | facility | + + + + | 2023-02-25 00:00 | Albuterol Sulfate HFA 108 | [facility] | | | (90 Base) MCG/ACT | | | | Inhalation Aerosol Solution | | | | | | + + + + | 2023-02-25 00:00 | [id number] 60 ACTUAT | [facility] | | | albuterol 0.09 MG/ACTUAT | | | | Metered Dose Inhaler | | + + + + Problems No information. Procedures + + + + | date | description | facility | + + + + | 2023-02-25 00:00 | SARS-CV-2 Coronavirus By | [facility] | | | Antigen Test STATE SUPPLIED | | | | | | + + + + Results/Labs +--------+--------+ +---------+--------+---------+ | test | date | facility | value | unit | notes | +--------+--------+ +---------+--------+---------+ + + | [facility] COVID-19 Rapid Antigen test | + + + + + + + + + | [facility] | 2023-02-25 | SHANAXIS | Negative | (missing) | (missing) | [...]
[2023-05-07 08:48] LABS: BASOPHILS 0.4 % (0-2); EOSINOPHILS 0.3 % (0-6); HEMATOCRIT 36.4 % (35.0-50.0); HEMOGLOBIN 12.1 g/dL (12.0-18.0); LYMPHOCYTES 17.4 % (24-44); MCH 25.4 (27-36); MCHC 33.2 g/dl (30-36); MCV 76.4 fl (81-99); MONOCYTES 6.9 % (0-12); PLATELET COUNT 364 K/uL (140-440); RBC 4.76 M/ul (4.3-5.7); RDW 14.3 (10.5-15.0)
[2023-05-07 08:58] LABS: AMPHETAMINES, UR POSITIVE (NEGATIVE); BARBITURATES, UR NEGATIVE (NEGATIVE); BENZODIAZEPINES, UR NEGATIVE (NEGATIVE); BUPRENORPHINE,UR NEGATIVE (NEGATIVE); COCAINE, UR NEGATIVE (NEGATIVE); MARIJUANA (THC), UR POSITIVE (NEGATIVE); MDMA, UR NEGATIVE (NEGATIVE); METHADONE, UR NEGATIVE (NEGATIVE); METHAMPHETAMINE, UR POSITIVE (NEGATIVE); OPIATES, UR NEGATIVE (NEGATIVE); OXYCODONE, UR NEGATIVE (NEGATIVE); PHENCYCLIDINE, UR NEGATIVE (NEGATIVE); TRICYCLIC ANTIDEPRESSANT, UR NEGATIVE (NEGATIVE)
[2023-05-07] MEDS ORDERED: METRONIDAZOLE500 MG PO (09:04)
[2023-05-07] MEDS ORDERED: DOXYCYCLINE HY100 MG PO (09:04)
[2023-05-07 09:05] LABS: ALBUMIN 3.2 g/dL (3.4-5.0); ALBUMIN/GLOBULIN RATIO 0.74 (1.1-2.4); ANION GAP 11.8 (7-21); BILIRUBIN, TOTAL 1.1 ng/dL (0.2-1.0); BUN/CREATININE RATIO 14.94 (6.0-28.6); CALCIUM 8.8 mg/dL (8.5-10.1); CREATININE, SERUM 0.87 mg/dL (0.55-1.02); POTASSIUM 3.8 mmol/L (3.5-5.1); PROTEIN, TOTAL 7.5 g/dL (6.4-8.2)
[2023-05-07 09:10] VITALS: BP 103/71
[2023-05-08 07:58] LABS: HEPATITIS BE ANTIBODY Negative (Negative)
[2023-05-08 08:51] LABS: HEPATITIS B SURFACE ANTIBODY <3.10 IU/L (())
== END 2023-05-07 09:12 | disposition home or self-care (01) ==
LOC: ED 06:05
PROVIDERS: Emergency Medicine
DX: T74.21XA Adult sexual abuse, confirmed, initial encounter (principal); F17.200 Nicotine dependence, unspecified, uncomplicated; J45.909 Unspecified asthma, uncomplicated; I48.91 Unspecified atrial fibrillation; G25.81 Restless legs syndrome; Z90.710 Acquired absence of both cervix and uterus; Y07.9 Unspecified perpetrator of maltreatment and neglect
CPT/HCPCS: 36415; 80053; 80307; 85025; 86706; 86707; 96372; 99284; A9270; J0696

== ENCOUNTER 2023-11-13 11:52 | Emergency (ER) | payer OTHER ==
[~2023-11-13] VITALS: Ht 149.9 cm; Wt 53.9 kg
[~2023-11-13 11:52] MED LIST changes: +METRONIDAZOLE500 MG PO
[2023-11-13 13:23] VITALS: BP 91/62
== END 2023-11-13 13:23 | disposition home or self-care (01) ==
LOC: ED 11:52
DX: S63.92XA Sprain of unspecified part of left wrist and hand, initial encounter (principal); F17.200 Nicotine dependence, unspecified, uncomplicated; W18.30XA Fall on same level, unspecified, initial encounter
CPT/HCPCS: 73130; 99283-25

== ENCOUNTER 2024-11-22 13:02 | Emergency (ER) | payer OTHER ==
[~2024-11-22] VITALS: Ht 149.9 cm; Wt 50.0 kg
[~2024-11-22 13:02] MED LIST changes: +EAR WAX DROPS15 M1 OTIC; +PERMETHRIN60 GM TOP
[2024-11-22 14:16] VITALS: BP 90/61
== END 2024-11-22 14:20 | disposition home or self-care (01) ==
LOC: ED 13:02
DX: S62.622A Displaced fracture of middle phalanx of right middle finger, initial encounter for closed fracture (principal); S62.624A Displaced fracture of middle phalanx of right ring finger, initial encounter for closed fracture; J45.909 Unspecified asthma, uncomplicated; I48.91 Unspecified atrial fibrillation; F17.200 Nicotine dependence, unspecified, uncomplicated; W01.0XXA Fall on same level from slipping, tripping and stumbling without subsequent striking against object, initial encounter
CPT/HCPCS: 73030; 73130; 99283